=== PATIENT | female | born 2000 | race Two or more races ===

== ENCOUNTER 2025-07-14 15:05 | Outpatient (AMB) | payer BC, MEDICAID, SELFPAY ==
[2025-07-14 15:18] VITALS: BP 132/85; PULSE 91; RESP 18; TEMP 35.9; O2SAT 97; BMI 44.4
--- NOTE | 2025-07-14 15:18 | OBCLNT_ITS ---
Vital Signs 07/14/25 15:18 Height 1.68 m Height Method Stated Weight 124.795 kg Weight Measurement Method Standing Scale BMI 44.4 BP 132/85 H Blood Pressure Source Automatic Cuff Blood Pressure Location Left Upper Arm Position Sitting Respiration 18 Pulse 91 Pulse Source Monitor Temp 96.6 F L Temp Source Oral Pulse Oximetry (%) 97 Oxygen Delivery Method Room Air Allergies/Home Meds Allergies & Medications Allergies No Known Allergies Allergy (Verified 07/14/25 15:19) Medication Reconciliation insulin glargine 100 unit/mL subcutaneous solution (Lantus U-100 Insulin) 39 unit subcut HS #0 vials 10/05/19 [History Confirmed 07/14/25] blood sugar diagnostic (Blood Glucose Test strips) #100 ea 07/14/25 [Rx] blood-glucose meter (Blood Glucose Monitoring kit) #1 ea 07/14/25 [Rx] insulin glargine 100 unit/mL (3 mL) subcutaneous pen (Lantus Solostar U-100 Insulin) 10 unit (0.1 mL) subcut QPM 30 days #3 mL 07/14/25 [Rx] labetalol 200 mg tablet 200 mg PO BID 30 days #60 tabs 07/14/25 [Rx] lancets 21 gauge #100 ea 07/14/25 [Rx] pen needle, diabetic 29 gauge x 1/2 #100 ea 07/14/25 [Rx] Intake Visit Data Collection New Patient or Established: New Patient not seen in past 3 years at [facility] (considered New) Reason for Visit:: INITIAL CARE Seen by Clinical Staff ONLY (RN/MA): No Tuna Purse Seiner Required: No Do You Feel Safe at Home: Yes Authorities Contacted: N/A PCP or OBGYN visit in last 3 months: Yes Hx Now: Yes Are you currently on any form of Control: No Last menstrual period: 12/25/24 Pain Present Currently: Yes Pain Location: Abdomen (LOWER ABDOMEN) Pain Scale Used: Saldana-Linder/Numerical Pain scale:: 5 Smoking Status Smoking Status: Never smoker Questionnaires Covid-19 Vaccine Questionnaire Has patient been vacinated for Covid-19 Have you been vacinated for Covid-19: Yes PHQ-9 PHQ-2 Over the last 2 weeks, how often have you been bothered by any of the following problems? 1. Little interest or pleasure in doing things: not at all 2. Feeling down, depressed, or hopeless: not at all Total score: 0 PHQ-9 3. Trouble falling or staying asleep, or sleeping too much: Not at all 4. Feeling tired or having little energy: Not at all 5. Poor appetite or overeating: Not at all 6. Feeling bad about yourself - or that you are a failure or have let yourself or your family down: Not at all 7. Trouble concentrating on things, such as reading the newspaper or watching television: Not at all 8. Moving or speaking so slowly that other people could have noticed? - Or the opposite - being so fidgety or restless that you have been moving around a lot more than usual: not at all 9. Thoughts that you would be better off or of hurting yourself in some way: Not at all Total score: 0 Source: Developed by Drs. Raymond Yip, Irma Hensley, Aman Farnsworth and colleagues, with an educational brenna from [employer]. Depression screen completed yes Social History Living Situation History Marital Status: Lives With: Family Housing: Apartment Tobacco History Smoking Status: Never smoker Second Hand Smoke Exposure: No Alcohol History Alcohol Intake: Never Domestic Abuse History Do You Feel Safe at Home: Yes History of Present Illness HPI Narrative Patient is a 4 para 0212 at 28 weeks and 5 days gestation, presenting for transfer of care from [facility] [place]. She has a history of two previous C-sections, both full-term, performed by Dr. Del Rosario from [facility]. Her is considered high-risk due to multiple comorbidities including type 2 diabetes mellitus in , chronic hypertension in , and morbid obesity. She reports that her blood glucose meter has been giving false readings, impacting her ability to accurately monitor her diabetes at home. She has a history of nausea during . Her estimated due date is August 20 or 2024, with a planned at 38 weeks. She is transferring her care at this stage of , bringing all her records for continuity of care. Medical History: - Type 2 diabetes mellitus in - Chronic hypertension in - Morbid obesity - History of nausea during Surgical History: - section x2, both full-term Obstetric History: - GTPAL: G4 T2 L2 - Two previous full-term C-sections performed by Dr. Del Rosario from [place] [facility] - Current : 28 weeks and 5 days gestation - Estimated due date: August 20 or 2024 with planned at 38 weeks Medications: - Metformin 1000 mg by mouth twice daily - Lantus 10 units at night - Guanfacine for hypertension Social History: - Lives in [place] - Uses [facility] [employer]: Past Medical History Past Medical History: Yes Hx Hypertension and Yes Hx Diabetes Mellitus Type 2 OB Initial Visit OB Flowsheet OB Flowsheet Initial Weight: Not Recorded Date -?-?-?-?-?-?-?-?-?-?-?-?- EGA Weight BP Alb Glu CTX Pres Fundal ht FHR Mov Dilation Station Ef facement Hx Notes Visit Note 07/14/25 -?-?-?-?-?-?-?-?-?-?-?-?- 28w 5d 124.795 kg 132/85 absent unknown 145 28w5d transferring care from [facility] [place] with history of 2 prior full-term C-sections, now high-risk due to type 2 diabetes, chronic hypertension, and morbid obesity. Reports unreliable glucose meter readings. On metformin, Lantus, and guanfacine. Planned repeat at 38 weeks (DEANNE ~08/20/25). Plan: Continue labs and growth monitoring; initiate NSTs at 32 weeks; switch guanfacine to labetalol; replace glucose meter and monitor sugars for 7 days; follow-up every 2 weeks until 35w, then weekly; next visit 07/29 at 9:30 AM. Menstrual History Menstrual reliability: definite Flow: normal Menstrual regularity: regular Monthly: Yes Age at menarche: 13 On control pills at conception: No Associated symptoms (LMP): Denies amenorrhea, nausea, vomiting, fatigue, breast tenderness, urinary frequency, irritability, bloating or other OB History : 4 Para: 2 Hx Total # of Abortions (Spontaneous & Elective): 1 # of Living Children: 2 Delivery History 1st : Child's name: TULIO date: 05/17/20 sex: female Gestational age at delivery (weeks): 38 Delivery type: Delivery complications: NONE History of depression before or after : No 2nd : Child's name: NEELA date: 05/23/22 sex: female Gestational age at delivery (weeks): 38 Delivery type: Delivery complications: NONE History of depression before or after : No Infection History & Risk Evaluation History of STDs: none Genetic Screening & History Genetic Screening/Teratology Counseling - Includes patient, baby's father, or anyone in either family with: 1. Patient's age 35 years or older as of estimated date of delivery: No 2. Thalassemia (Mongolian, Greenlandic, Mediterranean, or Background); MCV less than 80: No 3. Neural Tube Defect (Meningomyelocele, Spina Bifida, or Anencephaly): No 4. Congenital Heart Defect: No 5. Down Syndrome: No 6. Ifeanyi-Sachs (Ashkenazi Tenriism, Cajun, Belizean Angelina): No 7. Pau Disease (Ashkenazi Tenriism): No 8. Familial Dysautonomia (Ashkenazi Tenriism): No 9. Sickle Cell Disease or Trait (): No 10. Hemophilia or other blood disorders: No 11. Muscular Dystrophy: No 12. Cystic Fibrosis: No 13. Centre's Chorea: No 14. Mental Retardation/Autism: No 15. Other inherited genetic or chromosomal disorder: No 16. Maternal Metabolic Disorder (EG,TYPE 1 Diabetes, PKU): No 17. Patient or baby's father had a child with defects not listed above: No 18. Recurrent loss or a stillbirth: No 19. Medications (including supplements, vitamins, herbs or otc drugs)/illicit/recreational drugs/alcohol since last menstrual period: No 20. Any other: No Infection History 1. Live with someone with TB or exposed to TB: No 2. Rash or viral illness since last menstrual period: No 3. Hepatitis B,C: No Other (see comments) Source: [employer] Review of Systems Constitutional Constitutional: Denies fatigue Gastrointestinal Gastrointestinal: Denies bloating, Denies nausea and Denies vomiting Genitourinary Genitourinary: Denies amenorrhea and Denies urinary frequency Psychiatric Psychiatric: Denies irritability Endocrine Endocrine: Denies fatigue Exam General General Appearance: alert, in no apparent distress and healthy appearing Head Head exam: atraumatic Neck Neck exam: Present normal inspection and trachea midline Chest Chest inspection: Present normal inspection and symmetric chest wall rise External exam: Present normal external exam; Absent tenderness Neuro Neurological exam: Present oriented X3 Psych Psychiatric exam: Present normal affect and normal mood Office Procedures OB Clinic LOC & Office Proc's Nursing/Assessment Patient Status: Initial/New Patient OB Clinic Nursing Assessment: Medication Reconciliation, Update PMH in EMR and Vital Signs OB Clinic Coordination of Care: Complex Care and Chronic Disease 1-5, Consent,records obtained, informed consent, Education Simp Pt/Fam, 1 Ins Authorization, Lab and Imaging orders, Results/Orders obtained and Staff clarify orders Special Needs: Heart tones New Patient Charge New Patient Point Assignment: [id number] New Patient Point Charge: MANAGER PRODUCT MARKETING Level 4 (8300-3700) Assessment & Plan Diagnosis / Problem List (1) Type 2 diabetes mellitus affecting in third trimester, antepartum: Status: Acute (2) Chronic hypertension affecting : Status: Acute Plan , intrauterine, 28 weeks 5 days Assessment: Patient is a at 28 weeks 5 days gestation, with a history of two previous full-term C-sections. She is transferring care from [facility] [place] with all records. Given her medical history and previous C-sections, this is considered high-risk. A repeat is planned at 38 weeks, around August 20 or . Plan: - Schedule follow-up appointments every 2 weeks, then weekly after 35 weeks gestation - Initiate monitoring twice weekly starting at 32 weeks gestation - Plan for at 38 weeks gestation (around August 20 or ) - Next appointment scheduled for July 29 at 9:30 AM Type 2 Diabetes Mellitus in Assessment: Patient has pre-existing type 2 diabetes mellitus, currently managed with metformin 1000 mg BID and Lantus 10 units at night. Home glucose monitoring has been inconsistent or unreliable. Plan: - Continue current diabetes medications - Provide new glucose meter and supplies - Patient to monitor and record blood glucose levels for at least 7 days - Review glucose logs at next appointment to assess need for medication adjustments Chronic Hypertension in Assessment: Patient has chronic hypertension, currently managed with guanfacine. Given the extensive safety data available for labetalol use in , a medication change is warranted. Plan: - Discontinue guanfacine - Initiate labetalol - Prescribe new antihypertensive medication through [facility] Morbid Obesity Assessment: Patient has morbid obesity, which contributes to her high-risk status. Plan: - Continue to monitor weight throughout - Provide appropriate nutritional counseling as needed
== END 2025-07-14 15:32 | disposition home or self-care (01) ==
PROVIDERS: Supervising Provider Obstetrics & Gynecology; Visit Provider Obstetrics & Gynecology
DX: O09.893 Supervision of other high risk pregnancies, third trimester (principal); O24.113 Pre-existing type 2 diabetes mellitus, in pregnancy, third trimester; E11.9 Type 2 diabetes mellitus without complications; O99.213 Obesity complicating pregnancy, third trimester; E66.01 Morbid (severe) obesity due to excess calories; O10.913 Unspecified pre-existing hypertension complicating pregnancy, third trimester; O09.293 Supervision of pregnancy with other poor reproductive or obstetric history, third trimester; O34.219 Maternal care for unspecified type scar from previous cesarean delivery; Z3A.28 28 weeks gestation of pregnancy; Z79.4 Long term (current) use of insulin; Z79.899 Other long term (current) drug therapy
CPT/HCPCS: 99204; G0463

== ENCOUNTER 2025-08-03 09:26 | Outpatient (AMB) | payer BC, MEDICAID, SELFPAY ==
[2025-08-03 09:35] VITALS: BP 111/70; PULSE 92; RESP 16; TEMP 36.8; O2SAT 98; BMI 44.4
--- NOTE | 2025-08-03 09:35 | AMB.OBVISIT ---
Vital Signs 08/03/25 09:35 Height 1.68 m Height Method Stated Weight 125.362 kg Weight Measurement Method Standing Scale BMI 44.4 BP 111/70 Blood Pressure Source Automatic Cuff Blood Pressure Location Left Upper Arm Position Sitting Respiration 16 Pulse 92 Pulse Source Monitor Temp 98.2 F Temp Source Oral Pulse Oximetry (%) 98 Oxygen Delivery Method Room Air Allergies/Home Meds Allergies & Medications Allergies No Known Allergies Allergy (Verified 08/03/25 09:36) Medication Reconciliation insulin glargine 100 unit/mL subcutaneous solution (Lantus U-100 Insulin) 39 unit subcut HS #0 vials 10/05/19 [History Confirmed 08/03/25] blood sugar diagnostic (Blood Glucose Test strips) #100 ea 07/14/25 [Rx Confirmed 08/03/25] blood-glucose meter (Blood Glucose Monitoring kit) #1 ea 07/14/25 [Rx Confirmed 08/03/25] insulin glargine 100 unit/mL (3 mL) subcutaneous pen (Lantus Solostar U-100 Insulin) 10 unit (0.1 mL) subcut QPM 30 days #3 mL 07/14/25 [Rx Confirmed 08/03/25] labetalol 200 mg tablet 200 mg PO BID 30 days #60 tabs 07/14/25 [Rx Confirmed 08/03/25] lancets 21 gauge #100 ea 07/14/25 [Rx Confirmed 08/03/25] pen needle, diabetic 29 gauge x 1/2 #100 ea 07/14/25 [Rx Confirmed 08/03/25] metformin 1,000 mg tablet 1,000 mg PO BID 30 days #60 tabs 08/03/25 [Rx] Intake Visit Data Collection New Patient or Established: Established Patient (seen at [facility] within 3 years) Reason for Visit:: OBC Seen by Clinical Staff ONLY (RN/MA): No Software Engineer Backend Required: No Do You Feel Safe at Home: Yes Authorities Contacted: N/A PCP or OBGYN visit in last 3 months: Yes Date of Last PCP or OBGYN visit: 07/14/25 Hx Now: Yes Are you currently on any form of Control: No Pain Present Currently: No Pain Scale Used: Saldana-Linder/Numerical Pain scale:: 0 Smoking Status Smoking Status: Never smoker Questionnaires Covid-19 Vaccine Questionnaire Has patient been vacinated for Covid-19 Have you been vacinated for Covid-19: Yes PHQ-9 PHQ-2 Over the last 2 weeks, how often have you been bothered by any of the following problems? 1. Little interest or pleasure in doing things: not at all 2. Feeling down, depressed, or hopeless: not at all Total score: 0 PHQ-9 3. Trouble falling or staying asleep, or sleeping too much: Not at all 4. Feeling tired or having little energy: Not at all 5. Poor appetite or overeating: Not at all 6. Feeling bad about yourself - or that you are a failure or have let yourself or your family down: Not at all 7. Trouble concentrating on things, such as reading the newspaper or watching television: Not at all 8. Moving or speaking so slowly that other people could have noticed? - Or the opposite - being so fidgety or restless that you have been moving around a lot more than usual: not at all 9. Thoughts that you would be better off or of hurting yourself in some way: Not at all Total score: 0 If you checked off any problems, how difficult have these problems made it for you to do your work, take care of things at home, or get along with other people?: not difficult at all Source: Developed by Drs. Raymond Yip, Irma Hensley, Aman Farnsworth and colleagues, with an educational brenna from [email or web address]. Depression screen completed yes Social History Living Situation History Marital Status: Lives With: Family Housing: Apartment Tobacco History Smoking Status: Never smoker Second Hand Smoke Exposure: No Alcohol History Alcohol Intake: Never Domestic Abuse History Do You Feel Safe at Home: Yes C++ PROFESSOR: Past Medical History Past Medical History: Yes Hx Hypertension, No Hx Renal Disease, No Hx Diabetes Mellitus Type 1 and Yes Hx Diabetes Mellitus Type 2 Care OB Visit Log OB Flowsheet Initial Weight: Not Recorded Date <del>?</del> EGA Weight BP Alb Glu CTX Pres Fundal ht FHR Mov Dilation Station Effacement Hx Notes Visit Note 07/14/25 <del>?</del> 28w 5d 124.795 kg 132/85 absent unknown 145 28w5d transferring care from [facility] with history of 2 prior full-term C-sections, now high-risk due to type 2 diabetes, chronic hypertension, and morbid obesity. Reports unreliable glucose meter readings. On metformin, Lantus, and guanfacine. Planned repeat at 38 weeks (DEANNE ~08/20/25). Plan: Continue labs and growth monitoring; initiate NSTs at 32 weeks; switch guanfacine to labetalol; replace glucose meter and monitor sugars for 7 days; follow-up every 2 weeks until 35w, then weekly; next visit 07/29 at 9:30 AM. 08/03/25 <del>?</del> 31w 4d 125.362 kg 111/70 absent unknown 32 145 Patient has a history of prior delivery. No contractions, LOF, VB and reports good FM. Denies SHAH, VC, and epigastric pain. - Schedule repeat at 38 weeks - Continue current labetalol regimen for chronic hypertension - Prescribe Metformin 1000mg twice daily, send to [facility] - Start weekly appointments - Await insurance approval for NST testing; if not approved by end of or Friday, patient to be called in for testing DEANNE Calculator Estimated Delivery Date Method Current WG Current Estimate 10/01/25 LMP (Certain) 32w 1d Notes Visit Date: 08/03/25 Last Updated by: Wilver Landon MD - Chronic hypertension - Gestational diabetes mellitus - 4 para 2 at 31 weeks and 4 days gestation - Blood glucose monitoring: - Patient presented glucose logs - Fasting values: 117, 115 - Post-meal values: 124, 128, 115, 94 Office Procedures OB Clinic LOC & Office Proc's Nursing/Assessment Patient Status: Established Patient OB Clinic Nursing Assessment: Medication Reconciliation, Update PMH in EMR and Vital Signs OB Clinic Coordination of Care: Education Complex Pt/Fam, Consent,records obtained, informed consent, Lab and Imaging orders and Staff clarify orders Special Needs: Heart tones Established Patient Charge Established Patient Point Assignment: 110 Established Patient Point Charge: EP Level 3 (80-115) Assessment & Plan Diagnosis / Problem List (1) Chronic hypertension affecting : Status: Acute (2) Type 2 diabetes mellitus affecting in third trimester, antepartum: Status: Acute (3) Supervision of high risk , unspecified, third trimester: Status: Acute Plan Problem List - Chronic hypertension - Gestational diabetes mellitus - 4 para 2 at 31 weeks and 4 days gestation Assessment 4 para 0212 at 31 weeks and 4 days gestation with chronic hypertension and gestational diabetes mellitus (GDM). Patient was previously switched to labetalol for hypertension management. Blood glucose readings are within target range, with fasting values of 117 and 115, and post-prandial values ranging from 94 to 128. Patient reports decreased appetite due to growth. Blood pressure medication compliance confirmed. heart rate noted at 154-155 bpm, which is within normal limits. Patient ran out of metformin for GDM management. Plan - Schedule repeat at 38 weeks - Continue current labetalol regimen for chronic hypertension - Prescribe Metformin 1000mg twice daily, send to [facility] - Start weekly appointments - Await insurance approval for NST testing; if not approved by end of or Friday, patient to be called in for testing 1. Progress Reviewed gestational age, growth, and heart rate. Planned frequent visits (every 2 weeks until 36 weeks, then weekly). 2. Instructed patient to monitor movements and report decreases immediately. 3. Testing Counseled on routine third-trimester labs per guidelines. Discussed potential need for ultrasound or monitoring based on risk factors. 4. Preeclampsia Precaution Educated on preeclampsia signs: severe headache, vision changes, right upper quadrant pain, sudden swelling. Advised urgent reporting of symptoms and discussed blood pressure monitoring if high risk. 5. Labor Precautions Reviewed labor signs: regular contractions, pelvic pressure, back pain, bleeding, or fluid leakage. Instructed to seek immediate care for these symptoms. 6. Lifestyle and Delivery Preparation Reinforced vitamins, nutrition, and safe activity. Discussed plan, pain management, and . Advised on labor preparation (e.g., hospital bag) and expectations. 7. Psychosocial Support Assessed emotional well-being and offered resources for mental health or parenting support.
== END 2025-08-03 10:02 | disposition home or self-care (01) ==
LOC: HODSOBC 09:26
PROVIDERS: Supervising Provider Obstetrics & Gynecology; Visit Provider Obstetrics & Gynecology
DX: O09.893 Supervision of other high risk pregnancies, third trimester (principal); O10.913 Unspecified pre-existing hypertension complicating pregnancy, third trimester; O24.113 Pre-existing type 2 diabetes mellitus, in pregnancy, third trimester; O09.293 Supervision of pregnancy with other poor reproductive or obstetric history, third trimester; Z3A.31 31 weeks gestation of pregnancy; O99.213 Obesity complicating pregnancy, third trimester; E66.01 Morbid (severe) obesity due to excess calories; O34.219 Maternal care for unspecified type scar from previous cesarean delivery; Z79.899 Other long term (current) drug therapy; Z79.4 Long term (current) use of insulin; Z79.84 Long term (current) use of oral hypoglycemic drugs
CPT/HCPCS: 99213; G0463

== ENCOUNTER 2025-08-10 13:43 | Outpatient (AMB) | payer BC, MEDICAID, SELFPAY ==
[2025-08-10 14:07] VITALS: BP 130/84; PULSE 90; RESP 18; TEMP 35.6; O2SAT 98; BMI 44.7
--- NOTE | 2025-08-10 14:07 | AMB.OBVISIT ---
Vital Signs 08/10/25 14:07 Height 1.68 m Height Method Stated Weight 126.325 kg Weight Measurement Method Standing Scale BMI 44.7 BP 130/84 Blood Pressure Source Automatic Cuff Blood Pressure Location Left Upper Arm Position Sitting Respiration 18 Pulse 90 Pulse Source Monitor Temp 96.1 F L Temp Source Oral Pulse Oximetry (%) 98 Oxygen Delivery Method Room Air Allergies/Home Meds Allergies & Medications Allergies No Known Allergies Allergy (Verified 08/10/25 14:08) Medication Reconciliation insulin glargine 100 unit/mL subcutaneous solution (Lantus U-100 Insulin) 39 unit subcut HS #0 vials 10/05/19 [History Confirmed 08/10/25] blood sugar diagnostic (Blood Glucose Test strips) #100 ea 07/14/25 [Rx Confirmed 08/10/25] blood-glucose meter (Blood Glucose Monitoring kit) #1 ea 07/14/25 [Rx Confirmed 08/10/25] insulin glargine 100 unit/mL (3 mL) subcutaneous pen (Lantus Solostar U-100 Insulin) 10 unit (0.1 mL) subcut QPM 30 days #3 mL 07/14/25 [Rx Confirmed 08/10/25] labetalol 200 mg tablet 200 mg PO BID 30 days #60 tabs 07/14/25 [Rx Confirmed 08/10/25] lancets 21 gauge #100 ea 07/14/25 [Rx Confirmed 08/10/25] pen needle, diabetic 29 gauge x 1/2 #100 ea 07/14/25 [Rx Confirmed 08/10/25] metformin 1,000 mg tablet 1,000 mg PO BID 30 days #60 tabs 08/03/25 [Rx Confirmed 08/10/25] Intake Visit Data Collection New Patient or Established: Established Patient (seen at [facility] within 3 years) Reason for Visit:: CARE Seen by Clinical Staff ONLY (RN/MA): No 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 1. Little interest or pleasure in doing things: not at all 2. Feeling down, depressed, or hopeless: not at all Total score: 0 PHQ-9 3. Trouble falling or staying asleep, or sleeping too much: Not at all 4. Feeling tired or having little energy: Not at all 5. Poor appetite or overeating: Not at all 6. Feeling bad about yourself - or that you are a failure or have let yourself or your family down: Not at all 7. Trouble concentrating on things, such as reading the newspaper or watching television: Not at all 8. Moving or speaking so slowly that other people could have noticed? - Or the opposite - being so fidgety or restless that you have been moving around a lot more than usual: not at all 9. Thoughts that you would be better off or of hurting yourself in some way: Not at all Total score: 0 Source: Developed by Drs. Raymond Yip, Irma Hensley, Aman Farnsworth and colleagues, with an educational brenna from [employer]. 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 Reports unreliable glucose meter readings. On metformin, Lantus, and guanfacine. Planned repeat at 38 weeks (DEANNE ~08/20/25). Plan: Continue labs and growth monitoring; initiate NSTs at 32 weeks; switch guanfacine to labetalol; replace glucose meter and monitor sugars for 7 days; follow-up every 2 weeks until 35w, then weekly; next visit 07/29 at 9:30 AM. 08/03/25 <del>?</del> 35w 4d 125.362 kg 111/70 absent unknown 32 145 Patient has a history of prior delivery. No contractions, LOF, VB and reports good FM. Denies SHAH, VC, and epigastric pain. - Schedule repeat at 38 weeks - Continue current labetalol regimen for chronic hypertension - Prescribe Metformin 1000mg twice daily, send to [facility] - Start weekly appointments - Await insurance approval for NST testing; if not approved by end of or Friday, patient to be called in for testing 08/10/25 <del>?</del> 36w 4d 126.325 kg 130/84 absent unknown 36 145 - Patient reports: - Adherence to prescribed medications - Taking metformin 1000 mg twice daily for diabetes management - Taking blood pressure medication as prescribed - Blood sugar control - Highest readings between 160-170 mg/dL - No concerns or new symptoms mentioned - Planned interventions: - scheduled for 38 weeks due to chronic hypertension - GBS screening planned for next visit - Recent healthcare interactions: - Ultrasound performed at [facility] on the , report pending finalization - Planned section at 38 weeks for chronic hypertension, scheduled for September 20 at 7:30 AM (pending confirmation of due date from [facility] ultrasound report) - Continue metformin 1000 mg BID for type 2 diabetes mellitus - Continue current blood pressure medication - Stop medications one week before delivery - GBS testing to be performed in 2 weeks - Follow-up appointment in 2 weeks - Awaiting finalized ultrasound report from [facility] to confirm due date and section scheduling DEANNE Calculator Estimated Delivery Date Method Current WG Current Estimate 09/03/25 Manual 36w 5d By [facility] 05/27 Other Estimates 10/01/25 LMP (Uncertain) 32w 5d 09/03/25 Ultrasound #1 36w 5d Notes Visit Date: 08/03/25 Last Updated by: Wilver Landon MD - Chronic hypertension - Gestational diabetes mellitus - 4 para 2 at 31 weeks and 4 days gestation - Blood glucose monitoring: - Patient presented glucose logs - Fasting values: 117, 115 - Post-meal values: 124, 128, 115, 94 Office Procedures OBC Clinic LOC & Office Proc's Nursing/Assessment Patient Status: Established Patient OB Clinic Nursing Assessment: Medication Reconciliation, Update PMH in EMR and Vital Signs OB Clinic Coordination of Care: Complex Care and Chronic Disease 1-5, Consent,records obtained, informed consent, Education Simp Pt/Fam, 1 Ins Authorization, Lab and Imaging orders, Results/Orders obtained and Staff clarify orders Special Needs: Heart tones Established Patient Charge Established Patient Point Assignment: 150 Established Patient Point Charge: EP Level 4 (120-155) Assessment & Plan Diagnosis / Problem List (1) Chronic hypertension affecting : Status: Acute (2) Type 2 diabetes mellitus affecting in third trimester, antepartum: Status: Acute (3) Supervision of high risk , unspecified, third trimester: Status: Acute Plan Problem List - Type 2 Diabetes Mellitus - Chronic hypertension - ( 4, Para 2) Assessment 32-week 4-day 4 para 2 with chronic hypertension and type 2 diabetes mellitus managed on metformin 1000 mg BID. Blood pressure appears well-controlled on current antihypertensive medication. Glucose levels reported as acceptable with highest readings not exceeding 160-170 mg/dL. heart rate normal at 148-150 bpm with polyhydramnios noted on examination. Patient scheduled for third section at 38 weeks gestation due to chronic hypertension. Discrepancy exists regarding due date with conflicting information between facilities requiring clarification of ultrasound dating. Plan - Planned section at 38 weeks+ for chronic hypertension, scheduled for Aug 23 at 7:30 AM (pending confirmation of due date from [facility] ultrasound report) - Continue metformin 1000 mg BID for type 2 diabetes mellitus - Continue current blood pressure medication - Stop medications one week before delivery - GBS testing to be performed in 2 weeks - Follow-up appointment in 2 weeks - Awaiting finalized ultrasound report from [facility] to confirm due date and section scheduling 1. Progress Reviewed gestational age, growth, and heart rate. Planned frequent visits (every 2 weeks until 36 weeks, then weekly). 2. Instructed patient to monitor movements and report decreases immediately. 3. Testing Counseled on routine third-trimester labs per guidelines. Discussed potential need for ultrasound or monitoring based on risk factors. 4. Preeclampsia Precaution Educated on preeclampsia signs: severe headache, vision changes, right upper quadrant pain, sudden swelling. Advised urgent reporting of symptoms and discussed blood pressure monitoring if high risk. 5. Labor Precautions Reviewed labor signs: regular contractions, pelvic pressure, back pain, bleeding, or fluid leakage. Instructed to seek immediate care for these symptoms. 6. Lifestyle and Delivery Preparation Reinforced vitamins, nutrition, and safe activity. Discussed plan, pain management, and . Advised on labor preparation (e.g., hospital bag) and expectations. 7. Psychosocial Support Assessed emotional well-being and offered resources for mental health or parenting support.
== END 2025-08-10 14:44 | disposition home or self-care (01) ==
LOC: HODSOBC 13:43
PROVIDERS: Supervising Provider Obstetrics & Gynecology; Visit Provider Obstetrics & Gynecology
DX: O09.893 Supervision of other high risk pregnancies, third trimester (principal); O10.913 Unspecified pre-existing hypertension complicating pregnancy, third trimester; O24.113 Pre-existing type 2 diabetes mellitus, in pregnancy, third trimester; Z3A.36 36 weeks gestation of pregnancy; O40.3XX0 Polyhydramnios, third trimester, not applicable or unspecified; O09.293 Supervision of pregnancy with other poor reproductive or obstetric history, third trimester; O34.219 Maternal care for unspecified type scar from previous cesarean delivery; Z79.84 Long term (current) use of oral hypoglycemic drugs; Z79.4 Long term (current) use of insulin; Z79.899 Other long term (current) drug therapy
CPT/HCPCS: 99214; G0463

== ENCOUNTER 2025-08-11 09:16 | Outpatient (CLI) | payer BC, MEDICAID, SELFPAY ==
[2025-08-11] VITALS (7 sets, daily range): BP systolic 130–154; BP diastolic 79–88; PULSE 88–92; RESP 16–99; TEMP 36.6; BMI 43.9
--- NOTE | 2025-08-11 09:37 | XR_ITS ---
Examination: Biophysical profile, ultrasound Date and time of exam: August 11, 2025 0959 hours INDICATIONS: Diagnosis gestational diabetes, diagnosis -induced hypertension today Technique: Multiple transabdominal sonographic images of the pelvis abdomen obtained. Attention is directed to the breathing movement, gross body movement, amniotic fluid volume and tone. Findings: Amniotic fluid index 18.7 cm Total biophysical profile is 8 of 8. breathing movement is 2. Gross body movement is 2. tone is 2. Qualitative amniotic fluid volume is 2 Impression: Biophysical profile is 8 of 8.
[2025-08-11 10:35] LABS: Basophils # (Auto) 0.0 Thou/mm3 (0.0-0.2); Basophils % (Auto) 0 % (0-2.5); Eosinophils # (Auto) 0.1 Thou/mm3 (0.0-0.5); Eosinophils % (Auto) 1 % (0-10); Hematocrit 34.6 % (36.0-46.0); Hemoglobin 11.5 g/dL (12.0-16.0); Immature Granulocytes Auto 0.03 Thou/mm3 (0.00-0.00); Lymphocytes # (Auto) 1.3 Thou/mm3 (1.0-4.8); Lymphocytes % (Auto) 13 % (10-50); Mean Corpuscular HGB Conc 33.2 g/dl (31.0-37.0); Mean Corpuscular Hemoglobin 27.0 pg (25.0-35.0); Mean Corpuscular Volume 81 fL (80-100); Monocytes # (Auto) 0.4 Thou/mm3 (0.0-0.8); Monocytes % (Auto) 4 % (0-12); Neutrophils # (Auto) 7.9 Thou/mm3 (1.8-7.7); Neutrophils % (Auto) 82 % (37-80); Nucleated Red Blood Cell # 0.00 Thou/mm3 (0.00-0.00); Nucleated Red Blood Cell % 0 /100 WBC (0); Platelet Count 235 Thou/mm3 (140-440); RDW Standard Deviation 41.3 fL (36.4-46.3); Red Blood Count 4.26 Miln/mm3 (4.00-5.20); White Blood Count 9.7 Thou/mm3 (3.6-11.0)
[2025-08-11 10:53] LABS: Alanine Aminotransferase 12 U/L (10-49); Albumin, Serum 3.7 gm/dL (3.5-5.0); Albumin/Globulin Ratio 1.5 (1.2-2.2); Alkaline Phosphatase 89 U/L (46-116); Anion Gap 12 (7-16); Aspartate Amino Transferase 17 U/L (0-34); BUN/Creatinine Ratio 14 Ratio (12-20); Bilirubin,Total 0.3 mg/dL (0.3-1.2); Blood Urea Nitrogen 10 mg/dL (9-23); Calcium 9.2 mg/dL (8.3-10.6); Calcium (Corrected) 9.4 mg/dL (8.5-10.1); Carbon Dioxide 18.8 mMol/L (20.0-31.0); Chloride 107 mMol/L (98-107); Creatinine (Component) 0.7 mg/dL (0.6-1.3); Estimated Creatinine Clearance 173.5 mL/min (>60); Globulin 2.4 gm/dL (2.3-3.5); Glucose 169 mg/dL (74-106); LDH (Lactate Dehydrogenase) 109 U/L (120-246); Osmolality,Calculated 278 (275-295); Potassium 4.1 mMol/L (3.4-5.1); Sodium 138 mMol/L (136-145); Total Protein 6.1 gm/dL (5.7-8.2); Uric Acid 7.1 mg/dL (3.1-7.8); eGFR > 60 See Note
[2025-08-11 10:58] LABS: INR 1.0 (0.9-1.3); Partial Thromboplastin Time 27.2 Seconds (22.0-36.0); Prothrombin Time 10.5 Seconds (9.0-12.2)
[2025-08-11 11:00] LABS: Collection Type, Urine Clean Catch
[2025-08-11 11:07] LABS: Bilirubin,Urine Negative (Negative); Blood,Urine Negative (Negative); Clarity,Urine Clear (Clear/Hazy); Color,Urine Yellow (Lt Yel-Yel); Glucose, Urine Negative (Negative); Ketones,Urine Negative (Negative); Leukocyte Esterase,Urine Negative (Negative); Nitrite,Urine Negative (Negative); PH,Urine 6.5 (5.0-7.0); Protein,Urine Trace (Neg - Trace); RBC,Urine 2 /hpf (0-3); Specific Gravity,Urine 1.023 (1.001-1.035); Squamous Epithelial Cell,Urine 4 /hpf (0-5); Urobilinogen,Urine 2.0 mg/dL (0.0-1.0); WBC,Urine 3 /hpf (0-5)
[2025-08-11 11:16] LABS: Creatinine,Random Urine 125 mg/dL (30-125); Protein Total, Random Urine 37 mg/dL (1-14)
[2025-08-11 11:41] LABS: Fibrinogen 628 mg/dL (175-375)
== END 2025-08-11 11:25 | disposition home or self-care (01) ==
LOC: S4S1 09:17 → S4SX 09:17
PROVIDERS: Referring Provider Obstetrics & Gynecology; Visit Provider Obstetrics & Gynecology
DX: Z34.83 Encounter for supervision of other normal pregnancy, third trimester (principal); Z36.9 Encounter for antenatal screening, unspecified; Z3A.36 36 weeks gestation of pregnancy
CPT/HCPCS: 36415; 59025; 76819; 80053; 81001; 82570; 83615; 84156; 84550; 85025; 85384; 85610; 85730

== ENCOUNTER 2025-08-17 09:29 | Outpatient (CLI) | payer BC, SELFPAY ==
[2025-08-17] VITALS (10 sets, daily range): BP systolic 123; BP diastolic 77; PULSE 77–97; RESP 18–99; TEMP 36.7; O2SAT 98–100; BMI 45.8
--- NOTE | 2025-08-17 09:35 | XR_ITS ---
Examination: Biophysical profile, ultrasound Date and time of exam: August 17 2025, 1128 hours INDICATIONS: Diagnosis gestational diabetes, diagnosis -induced hypertension Technique: Multiple transabdominal sonographic images of the pelvis abdomen obtained. Attention is directed to the breathing movement, gross body movement, amniotic fluid volume and tone. Findings: Amniotic fluid index 14.9 cm Total biophysical profile is 8 of 8. breathing movement is 2. Gross body movement is 2. tone is 2. Qualitative amniotic fluid volume is 2 Impression: Biophysical profile is 8 of 8.
[2025-08-17] MEDS: RINGERS LACTATED 1000 ML 1,000 ML 999 ML IV (10:54)
[2025-08-17 11:17] LABS: Basophils # (Auto) 0.0 Thou/mm3 (0.0-0.2); Basophils % (Auto) 0 % (0-2.5); Eosinophils # (Auto) 0.1 Thou/mm3 (0.0-0.5); Eosinophils % (Auto) 1 % (0-10); Hematocrit 34.9 % (36.0-46.0); Hemoglobin 11.6 g/dL (12.0-16.0); Immature Granulocytes Auto 0.04 Thou/mm3 (0.00-0.00); Lymphocytes # (Auto) 1.5 Thou/mm3 (1.0-4.8); Lymphocytes % (Auto) 14 % (10-50); Mean Corpuscular HGB Conc 33.2 g/dl (31.0-37.0); Mean Corpuscular Hemoglobin 26.6 pg (25.0-35.0); Mean Corpuscular Volume 80 fL (80-100); Monocytes # (Auto) 0.5 Thou/mm3 (0.0-0.8); Monocytes % (Auto) 5 % (0-12); Neutrophils # (Auto) 8.5 Thou/mm3 (1.8-7.7); Neutrophils % (Auto) 80 % (37-80); Nucleated Red Blood Cell # 0.00 Thou/mm3 (0.00-0.00); Nucleated Red Blood Cell % 0 /100 WBC (0); Platelet Count 224 Thou/mm3 (140-440); RDW Standard Deviation 41.3 fL (36.4-46.3); Red Blood Count 4.36 Miln/mm3 (4.00-5.20); White Blood Count 10.6 Thou/mm3 (3.6-11.0)
[2025-08-17 11:28] LABS: Glucose Estimated Average 126 mg/dL (80-131); Hemoglobin A1C 6.0 % Hgb (4.8-6.0)
[2025-08-17 11:35] LABS: INR 0.9 (0.9-1.3); Partial Thromboplastin Time 26.9 Seconds (22.0-36.0); Prothrombin Time 10.0 Seconds (9.0-12.2)
[2025-08-17 11:37] LABS: Alanine Aminotransferase 14 U/L (10-49); Albumin, Serum 3.9 gm/dL (3.5-5.0); Albumin/Globulin Ratio 1.6 (1.2-2.2); Alkaline Phosphatase 97 U/L (46-116); Anion Gap 11 (7-16); Aspartate Amino Transferase 20 U/L (0-34); BUN/Creatinine Ratio 14 Ratio (12-20); Bilirubin,Total 0.4 mg/dL (0.3-1.2); Blood Urea Nitrogen 10 mg/dL (9-23); Calcium 9.7 mg/dL (8.3-10.6); Calcium (Corrected) 9.8 mg/dL (8.5-10.1); Carbon Dioxide 18.4 mMol/L (20.0-31.0); Chloride 110 mMol/L (98-107); Creatinine (Component) 0.7 mg/dL (0.6-1.3); Estimated Creatinine Clearance 171.9 mL/min (>60); Globulin 2.5 gm/dL (2.3-3.5); Glucose 107 mg/dL (74-106); Osmolality,Calculated 276 (275-295); Potassium 3.8 mMol/L (3.4-5.1); Sodium 139 mMol/L (136-145); Total Protein 6.4 gm/dL (5.7-8.2); Uric Acid 7.2 mg/dL (3.1-7.8); eGFR > 60 See Note
[2025-08-17 11:38] LABS: Fibrinogen 668 mg/dL (175-375)
[2025-08-17 11:54] LABS: Syphilis Nonreactive (Nonreactive)
== END 2025-08-17 12:00 | disposition home or self-care (01) ==
LOC: S4S1 09:32 → S4SX 09:32
PROVIDERS: Referring Provider Obstetrics & Gynecology; Visit Provider Obstetrics & Gynecology
DX: Z34.83 Encounter for supervision of other normal pregnancy, third trimester (principal); Z36.9 Encounter for antenatal screening, unspecified; Z3A.37 37 weeks gestation of pregnancy
CPT/HCPCS: 36415; 59025; 76819; 80053; 83036; 84550; 85025; 85384; 85610; 85730; 86780; 86850; 86900; 86901; J7120

== ENCOUNTER 2025-08-22 17:17 | Inpatient (IN) | payer BC, MEDICAID, SELFPAY ==
[2025-08-22] VITALS (49 sets, daily range): BP systolic 127–203; BP diastolic 57–123; PULSE 75–107; RESP 14–98; TEMP 36.6–37.1; O2SAT 96–99; BMI 44.6
[2025-08-22 14:02] LABS: Creatinine,Random Urine 70 mg/dL (30-125); Protein Total, Random Urine 26 mg/dL (1-14)
[2025-08-22 14:20] LABS: Collection Type, Urine Clean Catch
[2025-08-22] MEDS: RINGERS LACTATED 1000 ML 1,000 ML 999 ML IV (14:40)
[2025-08-22 14:46] LABS: Bacteria,Urine 1+; Bilirubin,Urine Negative (Negative); Blood,Urine Negative (Negative); Color,Urine Yellow (Lt Yel-Yel); Glucose, Urine Negative (Negative); Ketones,Urine Negative (Negative); Leukocyte Esterase,Urine Positive (Negative); Nitrite,Urine Negative (Negative); PH,Urine 7.0 (5.0-7.0); Protein,Urine Negative (Neg - Trace); RBC,Urine 1 /hpf (0-3); Specific Gravity,Urine 1.013 (1.001-1.035); Squamous Epithelial Cell,Urine 11 /hpf (0-5); Urobilinogen,Urine Negative mg/dL (0.0-1.0); WBC,Urine 3 /hpf (0-5)
[2025-08-22 15:09] LABS: Clarity,Urine Hazy (Clear/Hazy)
[2025-08-22 15:12] LABS: Basophils # (Auto) 0.0 Thou/mm3 (0.0-0.2); Basophils % (Auto) 0 % (0-2.5); Eosinophils # (Auto) 0.0 Thou/mm3 (0.0-0.5); Eosinophils % (Auto) 0 % (0-10); Hematocrit 36.2 % (36.0-46.0); Hemoglobin 12.0 g/dL (12.0-16.0); Immature Granulocytes Auto 0.04 Thou/mm3 (0.00-0.00); Lymphocytes # (Auto) 1.6 Thou/mm3 (1.0-4.8); Lymphocytes % (Auto) 16 % (10-50); Mean Corpuscular HGB Conc 33.1 g/dl (31.0-37.0); Mean Corpuscular Hemoglobin 26.8 pg (25.0-35.0); Mean Corpuscular Volume 81 fL (80-100); Monocytes # (Auto) 0.5 Thou/mm3 (0.0-0.8); Monocytes % (Auto) 5 % (0-12); Neutrophils # (Auto) 8.1 Thou/mm3 (1.8-7.7); Neutrophils % (Auto) 78 % (37-80); Nucleated Red Blood Cell # 0.00 Thou/mm3 (0.00-0.00); Nucleated Red Blood Cell % 0 /100 WBC (0); Platelet Count 269 Thou/mm3 (140-440); RDW Standard Deviation 41.6 fL (36.4-46.3); Red Blood Count 4.47 Miln/mm3 (4.00-5.20); White Blood Count 10.3 Thou/mm3 (3.6-11.0)
[2025-08-22 15:29] LABS: Alanine Aminotransferase 14 U/L (10-49); Albumin, Serum 4.0 gm/dL (3.5-5.0); Albumin/Globulin Ratio 1.5 (1.2-2.2); Alkaline Phosphatase 101 U/L (46-116); Anion Gap 12 (7-16); Aspartate Amino Transferase 21 U/L (0-34); BUN/Creatinine Ratio 16 Ratio (12-20); Bilirubin,Total 0.3 mg/dL (0.3-1.2); Blood Urea Nitrogen 11 mg/dL (9-23); Calcium 9.2 mg/dL (8.3-10.6); Calcium (Corrected) 9.2 mg/dL (8.5-10.1); Carbon Dioxide 16.7 mMol/L (20.0-31.0); Chloride 110 mMol/L (98-107); Creatinine (Component) 0.7 mg/dL (0.6-1.3); Estimated Creatinine Clearance 175.1 mL/min (>60); Globulin 2.7 gm/dL (2.3-3.5); Glucose 81 mg/dL (74-106); LDH (Lactate Dehydrogenase) 133 U/L (120-246); Osmolality,Calculated 275 (275-295); Potassium 4.3 mMol/L (3.4-5.1); Sodium 139 mMol/L (136-145); Total Protein 6.7 gm/dL (5.7-8.2); Uric Acid 7.0 mg/dL (3.1-7.8); eGFR > 60 See Note
[2025-08-22 15:33] LABS: INR 0.9 (0.9-1.3); Partial Thromboplastin Time 27.4 Seconds (22.0-36.0); Prothrombin Time 10.1 Seconds (9.0-12.2)
[2025-08-22 15:47] LABS: Syphilis Nonreactive (Nonreactive)
[2025-08-22 15:48] LABS: Fibrinogen 739 mg/dL (175-375)
[2025-08-22] MEDS: ceFAZolin/D5W 2 GM IV 2 GM/100 ML BAG IV (16:04)
[2025-08-22] MEDS: FAMOTIDINE INJ 10 MG/ML VIAL 2 ML 20 MG IV (16:04)
--- NOTE | 2025-08-22 18:21 | ESHP_ITS ---
Documentation for date of: 08/22/25 OB Labor/Induct. HPI History of Present Illness Chief complaint: Elevated blood pressures : 4 Para: 2 Term pregnancies: 2 pregnancies: 0 Living children: 2 History of Abortions: Spontaneous and Elective: 1 History of Vaginal deliveries: 0 History of sections: Yes (X2) History of : No Date of last menstrual period: 12/25/24 DEANNE: 09/03/25 Gestational Age (weeks): 38 Gestational Age (days): 2 Gestational age based on last menstrual period: 34 History of present illness: Patient is a 24-year-old -0-1-2 history of x 2 in the past who was scheduled for repeat 08/23/[address] Landon. The patient presented today for a scheduled nonstress test for obesity with a BMI of 45, non-insulin requiring gestational diabetes on metformin, and chronic hypertension on labetalol. The patient's blood pressures in triage were at first normal but began to climb as the day went on consistently in the 150s to 160s over 90s. As patient was over 38 weeks with prior x 2 and elevated BPs, she was consented for a repeat low-transverse section. On presentation, the patient denied contractions, loss of fluid, or vaginal bleeding. She denied headaches,right upper quadrant pain, or changes in vision. History of Present Dating criteria: LMP confirmed by 2nd trimester US Adequate Care: Yes Ultrasounds: normal mid trimester US Obstetrical complications: gestational diabetes and gestational hypertension Medical complications: other (Obesity with a BMI of 45) Labs Maternal Blood Type: O Pos Labs: Positive: Rubella Titre, Negative: RPR, Hepatitis B, HIV, Chlamydia and Gonorrhea and Unknown: Herpes Type 1, Herpes Type 2, Group Beta Strep and Covid-19 Past Medical History Surgical History SURGICAL: Positive Section (X2) Past Medical History Comments PMH COMMENT: Patient has a history of x 2 in the past. Per patient there were no complications with her C-sections including no infections and no heavy bleeding. She has a BMI of 45. CHTN. She denies being on meds for DM prior to . Meds Home Medications and Allergies Allergies Allergy/AdvReac Type Severity Reaction Status Date / Time No Known Allergies Allergy Verified 08/22/25 10:16 OB Exam Physical Exam Vital signs: Temp Pulse Resp BP 98.8 F 91 16 145/86 H 08/22/25 10:08 08/22/25 15:52 08/22/25 10:08 08/22/25 15:52 Routine Abdominal Exam Abdominal: Present soft and surgical scars (Pfannenstiel skin incision) Comments: Abdomen morbidly obese Detailed Labor and Delivery Exam Membranes: intact monitor accelerations: 15x15 monitor decelerations: None intermediate teacher variability: Moderate (11-25) Contraction frequency (min): Irregular Tachysystole: No Contraction intensity: Mild Routine Extremities Exam Comments: +2 edema of feet bilaterally OB Results Labs 08/22/25 14:30 08/22/25 14:30 Labs: Short CBC 08/22/25 Range/Units 14:30 WBC 10.3 (3.6-11.0) Thou/mm3 Hgb 12.0 (12.0-16.0) g/dL Hct 36.2 (36.0-46.0) % Plt Count 269 D (140-440) Thou/mm3 BMP 08/22/25 14:30 Sodium 139 Potassium 4.3 Chloride 110 H Carbon Dioxide 16.7 L BUN 11 Creatinine 0.7 Glucose 81 Calcium 9.2 Liver Function 08/22/25 Range/Units 14:30 Total Bilirubin 0.3 (0.3-1.2) mg/dL AST 21 (0-34) U/L ALT 14 (10-49) U/L Alkaline Phosphatase 101 (46-116) U/L Albumin 4.0 (3.5-5.0) gm/dL Urine 08/22/25 Range/Units 12:20 Urine Color Yellow (Lt Yel-Yel) Urine Clarity Hazy (Clear/Hazy) Urine pH 7.0 (5.0-7.0) Ur Specific Riddle 1.013 (1.001-1.035) Urine Protein Negative (Neg - Trace) Urine Glucose (UA) Negative (Negative) OB Assessment & Plan Assessment and Plan (1) Chronic hypertension affecting : Status: Acute Assessment and plan: On labetalol 200 twice daily (2) Type 2 diabetes mellitus affecting in third trimester, antepartum: Status: Acute Assessment and plan: On 1000 mg metformin daily (3) Supervision of high risk , unspecified, third trimester: Status: Acute (4) Previous delivery affecting : Status: Acute Assessment and plan: For repeat low-transverse section due to -induced hypertension. Patient was consented for the procedure the risks of the procedure were discussed including the risk of bleeding infection blood transfusion damage to bowel bladder blood vessels other organs prolonged hospital stay further surgery should any above occur.
[2025-08-22] MEDS: LABETALOL INJ 5 MG/ML VIAL 20 ML 40 MG IVP (18:29)
--- NOTE | 2025-08-22 18:39 | OBDSUM_ITS ---
Data (Yousif) Data Hx Section: Yes (X2) Maternal Blood Type: O Pos Rubella Titre: Positive RPR: Non-reactive Labs: Negative: RPR, Hepatitis B, HIV, Chlamydia, Gonorrhea and Group Beta Strep : 4 Term: 2 : 0 Livin Abortions: Spontaneous & Theraputic: 1 Delivery Data (Yousif) Labor Data Induction/Augmentation Agent: None ROM date: 08/22/25 ROM time: 16:57 Amniotic membrane rupture type: Artificial Amniotic fluid description: Clear Delivery Data EDC: 09/03/25 EDC calculated by:: LMP/early US confirmation Date of arrival to unit: 08/22/25 Onset of labor date: 08/22/25 Onset of labor time: 16:57 Complete dilation date: 08/22/25 Complete dilation time: 16:57 [place] delivery date: 08/22/25 [place] delivery time: 16:57 Gestational age (weeks): 38 Gestational age (days): 2 Placenta delivery date: 08/22/25 Placenta delivery time: 16:58 Stage 1 total time: Labor - Stage 1 Duration 0 minutes Delivered by: Sudha Augustin (OB Clinic) Delivery nurse: [email or web address] Gustavo nurse: [email or web address] Fuels Engineer at delivery: No Support person(s) at delivery: foB Other staff at delivery: JUAN Soto, CHANGE MANAGEMENTHEBER Garrett CRNA Delivery Method Delivery method: Low Transverse Presentation: Vertex position: OA Anesthesia Type Anesthesia Type: Spinal Delivery Room Medications Delivery room medications: Pitocin 20 u IV Placenta Placenta delivery description: Manual Removal Cord blood sent to lab: Yes cord blood collection: Cord Blood Type Episiotomy Episiotomy description: None EBL Estimated blood loss (ml): 500 Umbilical Cord cord description: 3 Vessels Additional Procedures See op report for further details Complications Complications: None Data (Yousif) Data order: 1 's gender: Male Identification band number: [id number] weight (gms): 3730 g Weight (pounds): 8 lbs and 3.6 ozs length: 50.8 cm 1 minute: 9 5 minutes: 9
--- NOTE | 2025-08-22 18:44 | ESOP_ITS ---
Operative Note - FORECLOSURE PARALEGAL Procedure Date of procedure: 08/22/25 Procedure Performed: Repeat low-transverse section Indication: The patient is a 24-year-old -0-1-2 with all care uncomplicated Dr. Landon with a history of x 2, chronic hypertension on labetalol 200 twice daily, and non-insulin requiring gestational diabetes on metformin daily who presented to triage for nonstress test BPP and was found to have elevated blood pressures in the 150s to 160s over 90s to 100. These persisted for several blood pressure checks. Her preeclamptic labs were normal with the exception of a new UPCR of 0.37 corresponding to a 24-hour urine of 450 mg. As patient was over 38 weeks with chronic hypertension and elevated blood pressures, some in the severe range, the patient was consented for repeat low-transverse section Pre-Op diagnosis: 1. IUP 38 2/7 weeks 2. Previous x 2 3. Chronic hypertension with superimposed preeclampsia 4. Gestational diabetes on metformin 5. Maternal BMI of 45 Post-Op diagnosis: Same Anesthesia type: Spinal Procedure description: Obtaining informed consent, the patient was brought back to the operating room and spinal anesthesia administered. She was then prepped and draped in the dorsal supine position with a leftward tilt in a normal sterile fashion. A Pardo catheter was inserted into the patient's bladder. The patient was given 2 g of Ancef by anesthesia. A Pfannenstiel skin incision was made with a scalpel and carried down to the underlying fascia. The fascia was incised in the midline, and the fascial incision extended laterally using Morton scissors. The superior aspect of the fascia was grasped with Shaq clamps, and the underlying rectus muscles dissected off using blunt and sharp dissection. This was repeated in the inferior aspect the incision. The rectus muscle were in the midline and the peritoneum was picked up and entered sharply with Metzenbaums. This was extended superiorly and inferiorly with good visualization of the bladder. The bladder blade was inserted and the uterus was incised in a low transverse fashion using a scalpel above the bladder reflection. The uterine incision was extended laterally with blunt dissection with the surgeon's fingers. The bag fermin was ruptured and copious clear fluid noted. The bladder blade was removed and the infant was delivered atraumatically in a vertex presentation. As the baby was vigorous at , delayed cord clamping was performed for approximately 1 minute. The cord was then clamped and cut, and the was handed off to the waiting pediatric staff. Cord blood was collected. Cord gases were saved. The placenta was then manually removed, and the uterus was exteriorized and cleared of all clots and debris. The uterine incision was repaired using 0 Monocryl in a running locked fashion. Excellent hemostasis was noted. The uterus was returned to the patient's abdominal cavity and copious irrigation carried out with warm normal saline. The uterine incision was reexamined several times and noted to be hemostatic. After ensuring the rectus muscles were hemostatic, these were reapproximated in the midline using a running suture of 0 Monocryl. The fascia was closed with 0 Vicryl in a running fashion. The subcutaneous tissues were irrigated, and found to be hemostatic. These were reapproximated using a running suture of 2-0 plain. The skin was closed with a subcuticular suture of 4-0 Monocryl. The patient tolerated the procedure well, sponge, lap, needle, and instrument counts were correct x 2. The patient went to the recovery area awake and in stable condition. Complications were none. Fluids: crystalloid Fluid amount (mL): 500 Urine output (mL): 500 Specimen: none Implants: None Estimated blood loss (ml): 500 Findings: Liveborn male in the DEIDRE presentation with no nuchal cord or meconium Apgars were 9 and 9 weight was 8 pounds 4 ounces. Time of was 1657. The placenta was complete spontaneous grossly normal. Tubes, uterus and ovaries appeared grossly normal. She had a thick lower uterine segment and very little scar tissue present in the patient's abdomen. Complications: none Surgical staff Temitope Lopez CRNA Operation Date: 08/22/25 16:15 <No data on this case meets the specified criteria> Diagnosis Discharge Diagnosis (1) Previous delivery affecting : Status: Acute (2) Chronic hypertension affecting : Status: Acute Problem details: On labetalol 200 twice daily. Monitor blood pressures . Push labetalol as needed. (3) Supervision of high risk , unspecified, third trimester: Status: Acute (4) Type 2 diabetes mellitus affecting in third trimester, antepartum: Status: Acute Problem List Completed Was Problem List Reviewed/Reconciled?: Yes
[2025-08-22] MEDS: hydrALAZINE INJ 20 MG/ML VIAL 5 MG IVP ×2 (19:11→20:33)
[2025-08-22] MEDS: NIFEdipine XL 30 MG TABCR 60 MG PO (19:35)
[2025-08-22] MEDS: ONDANSETRON INJ 2 MG/ML INJ 2 ML 4 MG IV (19:36)
--- NOTE | 2025-08-22 21:09 | PC.NURSE ---
Patient out of recovery phase at 08/22/20281954, RN remains at bedside to monitor patient BP. Dr. Augustin at bedside at 2039 to asses patient, states to go ahead and continue with scheduled medications and plan of care.
[2025-08-22] MEDS: OXYTOCIN in NS 20 units 20 UNIT/1,000 ML BAG 125 UNIT IV (22:15)
[2025-08-22] MEDS: LABETALOL 100 MG TABLET 200 MG PO (22:24)
[2025-08-23] VITALS (8 sets, daily range): BP systolic 127–149; BP diastolic 80–88; PULSE 80–93; RESP 15–19; TEMP 36.7–37; O2SAT 98–99
[2025-08-23] MEDS: KETOROLAC INJ 30 MG/ML VIAL IVP ×4 (04:28→23:49)
[2025-08-23 05:50] LABS: Basophils # (Auto) 0.0 Thou/mm3 (0.0-0.2); Basophils % (Auto) 0 % (0-2.5); Eosinophils # (Auto) 0.0 Thou/mm3 (0.0-0.5); Eosinophils % (Auto) 0 % (0-10); Hematocrit 32.5 % (36.0-46.0); Hemoglobin 10.8 g/dL (12.0-16.0); Immature Granulocytes Auto 0.05 Thou/mm3 (0.00-0.00); Lymphocytes # (Auto) 1.3 Thou/mm3 (1.0-4.8); Lymphocytes % (Auto) 9 % (10-50); Mean Corpuscular HGB Conc 33.2 g/dl (31.0-37.0); Mean Corpuscular Hemoglobin 26.9 pg (25.0-35.0); Mean Corpuscular Volume 81 fL (80-100); Monocytes # (Auto) 0.6 Thou/mm3 (0.0-0.8); Monocytes % (Auto) 4 % (0-12); Neutrophils # (Auto) 13.0 Thou/mm3 (1.8-7.7); Neutrophils % (Auto) 87 % (37-80); Nucleated Red Blood Cell # 0.00 Thou/mm3 (0.00-0.00); Nucleated Red Blood Cell % 0 /100 WBC (0); Platelet Count 243 Thou/mm3 (140-440); RDW Standard Deviation 41.5 fL (36.4-46.3); Red Blood Count 4.02 Miln/mm3 (4.00-5.20); White Blood Count 14.9 Thou/mm3 (3.6-11.0)
[2025-08-23 06:25] LABS: Alanine Aminotransferase 14 U/L (10-49); Albumin, Serum 3.4 gm/dL (3.5-5.0); Albumin/Globulin Ratio 1.4 (1.2-2.2); Alkaline Phosphatase 77 U/L (46-116); Anion Gap 11 (7-16); Aspartate Amino Transferase 22 U/L (0-34); BUN/Creatinine Ratio 16 Ratio (12-20); Bilirubin,Total 0.4 mg/dL (0.3-1.2); Blood Urea Nitrogen 11 mg/dL (9-23); Calcium 8.9 mg/dL (8.3-10.6); Calcium (Corrected) 9.4 mg/dL (8.5-10.1); Carbon Dioxide 16.4 mMol/L (20.0-31.0); Chloride 108 mMol/L (98-107); Creatinine (Component) 0.7 mg/dL (0.6-1.3); Estimated Creatinine Clearance 175.1 mL/min (>60); Globulin 2.5 gm/dL (2.3-3.5); Glucose 116 mg/dL (74-106); Osmolality,Calculated 270 (275-295); Potassium 4.2 mMol/L (3.4-5.1); Sodium 135 mMol/L (136-145); Total Protein 5.9 gm/dL (5.7-8.2); eGFR > 60 See Note
[2025-08-23] MEDS: Milk Of Magnesia Susp 30 ML UDC PO (08:09)
[2025-08-23] MEDS: DOCUSATE SOD 100 MG CAPSULE PO (08:10)
[2025-08-23] MEDS: LABETALOL 100 MG TABLET 200 MG PO ×2 (08:10→20:51)
[2025-08-23] MEDS: SIMETHICONE 80 MG CHEW PO ×2 (08:10→18:37)
[2025-08-23] MEDS: ENOXAPARIN SOD INJ 40 MG/0.4 ML SYRINGE SC (08:11)
[2025-08-23] MEDS: SODIUM CHLORIDE 0.9% IV (13:54)
[2025-08-23] MEDS: CEFAZOLIN IV (13:54)
[2025-08-23] MEDS: HYDROcodone/APAP 5/325 TABLET 1 TAB PO (16:14)
[2025-08-24 03:39] VITALS: BP 135/79; PULSE 75; RESP 16; TEMP 36.7; O2SAT 98
[2025-08-24] MEDS: KETOROLAC INJ 30 MG/ML VIAL IVP ×3 (05:54→17:58)
[2025-08-24 09:11] VITALS: BP 138/81; PULSE 83; RESP 16; TEMP 36.6; O2SAT 98
[2025-08-24 09:29] VITALS: BP 138/81; PULSE 83
[2025-08-24] MEDS: ENOXAPARIN SOD INJ 40 MG/0.4 ML SYRINGE SC (09:29)
[2025-08-24] MEDS: DOCUSATE SOD 100 MG CAPSULE PO (09:29)
[2025-08-24] MEDS: LABETALOL 100 MG TABLET 200 MG PO (09:29)
[2025-08-24 10:03] LABS: Basophils # (Auto) 0.0 Thou/mm3 (0.0-0.2); Basophils % (Auto) 1 % (0-2.5); Eosinophils # (Auto) 0.1 Thou/mm3 (0.0-0.5); Eosinophils % (Auto) 1 % (0-10); Hematocrit 27.9 % (36.0-46.0); Hemoglobin 9.1 g/dL (12.0-16.0); Immature Granulocytes Auto 0.02 Thou/mm3 (0.00-0.00); Lymphocytes # (Auto) 1.3 Thou/mm3 (1.0-4.8); Lymphocytes % (Auto) 16 % (10-50); Mean Corpuscular HGB Conc 32.6 g/dl (31.0-37.0); Mean Corpuscular Hemoglobin 26.5 pg (25.0-35.0); Mean Corpuscular Volume 81 fL (80-100); Monocytes # (Auto) 0.3 Thou/mm3 (0.0-0.8); Monocytes % (Auto) 4 % (0-12); Neutrophils # (Auto) 6.6 Thou/mm3 (1.8-7.7); Neutrophils % (Auto) 79 % (37-80); Nucleated Red Blood Cell # 0.00 Thou/mm3 (0.00-0.00); Nucleated Red Blood Cell % 0 /100 WBC (0); Platelet Count 217 Thou/mm3 (140-440); RDW Standard Deviation 42.4 fL (36.4-46.3); Red Blood Count 3.43 Miln/mm3 (4.00-5.20); White Blood Count 8.3 Thou/mm3 (3.6-11.0)
[2025-08-24 12:00] VITALS: BP 131/81; PULSE 92; RESP 18; TEMP 36.8; O2SAT 98
[2025-08-24 16:28] VITALS: BP 149/91; PULSE 87; RESP 18; TEMP 36.8; O2SAT 98
--- NOTE | 2025-08-24 17:42 | ESPR_ITS ---
Subjective Subjective Interval history: Patient is a 24-year-old -0-0-3 postop day #2 status post repeat low- transverse section. She is doing quite well. She is on labetalol 200 twice a day. Patient is voiding ambulating tolerating a general diet passing flatus. She would like to go home. She is breast and bottlefeeding. Exam Vital Signs Temp Pulse Resp BP Pulse Ox O2 Del Method 98.2 F 87 18 149/91 H 98 Room Air 08/24/25 16:28 08/24/25 16:28 08/24/25 16:28 08/24/25 16:28 08/24/25 16:28 08/24/25 16:28 Narrative Exam Patient is alert and orient x 3 in no apparent distress resting comfortably in bed. Fundus is firm. Abdomen is obese. Incisions clean dry and intact with Dermabond dressing in place. Extremities show 1+ edema of ankles. Objective Labs 08/24/25 09:40 08/23/25 05:23 Labs: Laboratory Results - last 24 hr 08/24/25 09:40 WBC 8.3 D RBC 3.43 L Hgb 9.1 L Hct 27.9 L MCV 81 MCH 26.5 MCHC 32.6 RDW Std Deviation 42.4 Plt Count 217 Neut % (Auto) 79 Lymph % (Auto) 16 [place] % (Auto) 4 Eos % (Auto) 1 Baso % (Auto) 1 Neut # (Auto) 6.6 Lymph # (Auto) 1.3 [place] # (Auto) 0.3 Eos # (Auto) 0.1 Baso # (Auto) 0.0 Immature Gran # (Auto) 0.02 H Absolute Nucleated RBC 0.00 Immature Gran % 0 Nucleated RBC % 0 Assessment & Plan Problem List (1) Previous delivery affecting : Problem details: Patient is postop day #2 in stable condition. Discharge instructions given. Follow-up in clinic in 1 week for a wound and blood pressure check. Status: Acute (2) Chronic hypertension affecting : Problem details: On labetalol 200 twice daily. Monitor blood pressures . Increase to 300 mg p.o. twice daily follow-up in clinic in 1 week. Signs of severe preeclampsia given. Status: Acute (3) Type 2 diabetes mellitus affecting in third trimester, antepartum: Status: Acute (4) care following delivery: Problem details: No heavy lifting intercourse tampons douching or strenuous exercise x 6 weeks follow-up 08/29/2025 for return OB visit Status: Acute Time Spent With Patient Time: Total time spent is greater than 50% in coordination of care (as documented) at patient's floor/unit and/or counseling patient: Time with patient: less than 15 minutes
--- NOTE | 2025-08-24 17:56 | ESDS_ITS ---
DS: Providers Provider Date of admission: 08/22/25 17:17 Primary care physician: Physician No Primary/Family Admitting Provider: Sud[facility] ([facility]) Attending Provider on Admission: Sudha Augustin MD ([facility]) Consults: 08/22/25 18:12 Referral Routine Comment: Attending Provider on DC: Sudha Augustin MD ([facility]) Discharging Provider: Sudha Augustin MD ([facility]) Anticipated date of discharge: 08/24/25 DS: Diagnosis Discharge Diagnosis (1) care following delivery: Status: Acute Assessment & Plan: Discharge instructions given. No heavy lifting, intercourse, tampons, douching, strenuous exercise x 6 weeks (2) Previous delivery affecting : Status: Acute Assessment & Plan: Follow-up in 1 week for blood pressure and wound check (3) Chronic hypertension affecting : Status: Acute Assessment & Plan: Home on labetalol 300 twice daily. Follow-up in 1 week. Check blood pressures at home. Signs of severe preeclampsia reviewed. (4) Type 2 diabetes mellitus affecting in third trimester, antepartum: Status: Acute Assessment & Plan: Check blood sugars at home. Continue metformin twice daily. Problem List Completed Was Problem List Reviewed/Reconciled?: Yes Summary/Hosp Course Brief History: Patient is a 24-year-old -0-1-2 history of x 2 in the past who was scheduled for repeat 08/23/[address] Landon. The patient presented today for a scheduled nonstress test for obesity with a BMI of 45, non-insulin requiring gestational diabetes on metformin, and chronic hypertension on labetalol. The patient's blood pressures in triage were at first normal but began to climb as the day went on consistently in the 150s to 160s over 90s. As patient was over 38 weeks with prior x 2 and elevated BPs, she was consented for a repeat low-transverse section. On presentation, the patient denied contractions, loss of fluid, or vaginal bleeding. She denied headaches,right upper quadrant pain, or changes in vision. See history and physical for further details Hospital course: Patient underwent an uncomplicated repeat low-transverse section in the evening of 08/22/2025. See op report for further details. Immediately post op, patient's blood pressures were extremely high. Requiring multiple IV doses of medications to control. Her blood pressure stabilized post operative day #1. By postoperative day #2, the patient was ambulating, voiding, passing flatus, tolerating a general diet. Her lochia was minimal. No fevers or chills. Her blood pressure was controlled with labetalol 200 p.o. twice daily. Patient was discharged home postoperative day #2 in stable condition. Discharge instructio ns included no heavy lifting, intercourse, douching, or strenuous exercise x 6 weeks. She was to follow-up in our clinic 08/29/2025 for a blood pressure check and wound check. Peripartum Data Delivery Method: Low Transverse Episiotomy Description: None Procedures: Procedures Operation Date: 08/22/25 16:15 Actual Procedure Side Surgeon p in OB Sudha Augustin ([facility]), complications: none Status at Discharge Cognitive/behavioral status at discharge: Patient is alert and oriented x 3 in no apparent distress Functional status at discharge: independent ambulation Overall status at discharge: patient is progressing back to baseline Time Spent with Patient Time attestation: Total time spent providing and/or coordinating discharge services: Time spent: Less than 30 minutes Specific discharge activities: No heavy lifting, intercourse, douching, strenuous exercise x 6 weeks. Call with fevers heavy vaginal bleeding or severe depression. Call if blood pressures are elevated. Go to the ER if blood pressures are 160s to 170s over 100s or with severe headache or shortness of breath or visual changes Exam Vital Signs Temp Pulse Resp BP Pulse Ox O2 Del Method 98.2 F 87 18 149/91 H 98 Room Air 08/24/25 16:28 08/24/25 16:28 08/24/25 16:28 08/24/25 16:28 08/24/25 16:28 08/24/25 16:28 Narrative Exam Fundus firm nontender incision clean dry and intact extremities showed no significant edema or erythema Discharge Plan Plan Patient Disposition: HOME (Self Care) Disposition Comment: Stable Prescriptions/Referrals Prescriptions/Med Rec: New acetaminophen 325 mg Tablet 650 mg PO Q6HR PRN (Reason: Patient rated pain of 3) Qty: 60 0RF hydrocodone-acetaminophen 5-325 mg Tablet 2 tab PO Q6HR MDD 4 PRN (Reason: Patient rated pain 9 to 10) Qty: 20 0RF ibuprofen 400 mg Tablet 800 mg PO Q8HR PRN (Reason: Pain Scale 4-6 (Moderate) Qty: 60 0RF docusate sodium 100 mg Capsule 100 mg PO QDAY Qty: 60 0RF labetalol 100 mg Tablet 300 mg PO BID Qty: 60 0RF enoxaparin 40 mg/0.4 mL Syringe 40 mg SCi QDAY Qty: 30 0RF Continued (DME) Blood Glucose Test Strip See Rx Instructions .ROUTE .MEDSUPPLY Qty: 100 0RF Rx Instructions: As directed, 4 times a day (DME) lancets 21 gauge misc See Rx Instructions .ROUTE .MEDSUPPLY Qty: 100 0RF Rx Instructions: As directed, 4 times a day (DME) pen needle, diabetic 29 gauge x 1/2 needle See Rx Instructions .ROUTE .MEDSUPPLY Qty: 100 2RF Rx Instructions: As directed, four times a day (DME) blood-glucose meter [Blood Glucose Monitoring] Kit See Rx Instructions .Route Qty: 1 0RF Rx Instructions: As directed, four times a day metformin 1,000 mg tablet 1,000 mg PO BID 30 Days Qty: 60 3RF Discontinued labetalol 200 mg tablet 200 mg PO BID 30 Days Qty: 60 2RF Referrals: No Primary/Family,Physician [Primary Care Provider] Patient/Caregiver Discharge Instructions Discharge Activity: activity as tolerated Other Discharge Activity Instructions:: Pelvic rest x 6 weeks no intercourse douching heavy lifting or strenuous exercise x 6 weeks Other Discharge Diet Instructions: Diabetic diet Education Materials: Managing Type 2 Diabetes, Diabetes: Caring for Your Body, After a , Diabetes: Activity Tips, : Caring for Yourself, C Section Dc, Diabetes and High Blood Pressure Print Language: [place] Activity Restrictions/Additional Instructions: Pelvic rest x 6 weeks. No heavy exercise x 6 weeks. No heavy lifting x 6 weeks. Call for fevers heavy vaginal bleeding or severe depression Stand Alone Forms: Priyanka Award Info., Patient Portal Info Letter Discharge Order Discharge Orders: Discharge (Routine); Ordered 08/24/25 Ordered By: Sudha Augustin ([facility]) Planned Discharge Date 08/24/25
[2025-08-24 19:43] VITALS: BP 148/86; PULSE 85; RESP 18; TEMP 36.9
== END 2025-08-24 19:47 | disposition home or self-care (01) | DRG 788 ==
LOC: S4S1 17:18 → S4NX 17:18
PROVIDERS: Admitting Provider Obstetrics & Gynecology; Visit Provider Obstetrics & Gynecology
PROC: 10D00Z1 Extraction of Products of Conception, Low, Open Approach (ICD-10-PCS; CPT 59514; principal; 2025-08-22 16:00)
DX: O34.211 Maternal care for low transverse scar from previous cesarean delivery (principal); Z3A.38 38 weeks gestation of pregnancy; Z37.0 Single live birth; O11.4 Pre-existing hypertension with pre-eclampsia, complicating childbirth; O24.415 Gestational diabetes mellitus in pregnancy, controlled by oral hypoglycemic drugs; O99.214 Obesity complicating childbirth
CPT/HCPCS: 36415; 59025; 80053; 81001; 82570; 83615; 84156; 84550; 85025; 85384; 85610; 85730; 86780; 86850; 86900; 86901; A4217; A4314; A4649; J0360; J0689; J0690; J1100; J1650; J1885; J2274; J2405; J2590; J3010; J3490; J7050; J7120; A9270; J1805; J1920; J2270

== ENCOUNTER 2025-08-25 21:35 | Emergency (ER) | payer BC, MEDICAID, SELFPAY ==
[2025-08-25 21:36] VITALS: BMI 42.3
[2025-08-25 22:41] VITALS: BP 178/99; BP 183/102; PULSE 84; RESP 20; TEMP 37.1; O2SAT 98
--- NOTE | 2025-08-25 22:49 | EDRME_ITS ---
Rapid Medical Screening Exam [facility] Arrival date/time: 08/25/25 21:35 24F with history of HTN and DM Presents to ED with elevated BP 3 days after having . Chief Complaint: General Adult/Misc Complain Vital signs: Vital Signs Temperature 98.8 F 08/25/25 22:41 Pulse Rate 84 08/25/25 22:41 Respiratory Rate 20 08/25/25 22:41 Blood Pressure 183/102 H 08/25/25 22:41 Pulse Oximetry (%) 98 08/25/25 22:41 Oxygen Delivery Method Room Air 08/25/25 22:41
[2025-08-25 23:10] LABS: Basophils # (Auto) 0.1 Thou/mm3 (0.0-0.2); Basophils % (Auto) 1 % (0-2.5); Eosinophils # (Auto) 0.2 Thou/mm3 (0.0-0.5); Eosinophils % (Auto) 2 % (0-10); Hematocrit 31.2 % (36.0-46.0); Hemoglobin 10.5 g/dL (12.0-16.0); Immature Granulocytes Auto 0.03 Thou/mm3 (0.00-0.00); Lymphocytes # (Auto) 2.1 Thou/mm3 (1.0-4.8); Lymphocytes % (Auto) 23 % (10-50); Mean Corpuscular HGB Conc 33.7 g/dl (31.0-37.0); Mean Corpuscular Hemoglobin 27.2 pg (25.0-35.0); Mean Corpuscular Volume 81 fL (80-100); Monocytes # (Auto) 0.5 Thou/mm3 (0.0-0.8); Monocytes % (Auto) 5 % (0-12); Neutrophils # (Auto) 6.2 Thou/mm3 (1.8-7.7); Neutrophils % (Auto) 68 % (37-80); Nucleated Red Blood Cell # 0.00 Thou/mm3 (0.00-0.00); Nucleated Red Blood Cell % 0 /100 WBC (0); Platelet Count 266 Thou/mm3 (140-440); RDW Standard Deviation 42.0 fL (36.4-46.3); Red Blood Count 3.86 Miln/mm3 (4.00-5.20); White Blood Count 9.0 Thou/mm3 (3.6-11.0)
[2025-08-25 23:20] LABS: Collection Type, Urine Clean Catch
[2025-08-25 23:29] LABS: Bilirubin,Urine Negative (Negative); Blood,Urine 3+ (Negative); Clarity,Urine Turbid (Clear/Hazy); Color,Urine Lt-Brown (Lt Yel-Yel); Culture Indicated,Urine Contaminated; Glucose, Urine Negative (Negative); Ketones,Urine Negative (Negative); Leukocyte Esterase,Urine Positive (Negative); Nitrite,Urine Negative (Negative); PH,Urine 6.5 (5.0-7.0); Protein,Urine 1+ (Neg - Trace); RBC,Urine 2740 /hpf (0-3); Specific Gravity,Urine 1.012 (1.001-1.035); Squamous Epithelial Cell,Urine 13 /hpf (0-5); Urobilinogen,Urine Negative mg/dL (0.0-1.0); WBC,Urine 61 /hpf (0-5)
[2025-08-25 23:34] LABS: Alanine Aminotransferase 59 U/L (10-49); Albumin, Serum 3.9 gm/dL (3.5-5.0); Albumin/Globulin Ratio 1.6 (1.2-2.2); Alkaline Phosphatase 80 U/L (46-116); Anion Gap 15 (7-16); Aspartate Amino Transferase 80 U/L (0-34); BUN/Creatinine Ratio 16 Ratio (12-20); Bilirubin,Total 0.3 mg/dL (0.3-1.2); Blood Urea Nitrogen 13 mg/dL (9-23); Calcium 9.6 mg/dL (8.3-10.6); Calcium (Corrected) 9.7 mg/dL (8.5-10.1); Carbon Dioxide 21.5 mMol/L (20.0-31.0); Chloride 106 mMol/L (98-107); Creatinine (Component) 0.8 mg/dL (0.6-1.3); Estimated Creatinine Clearance 148.4 mL/min (>60); Globulin 2.4 gm/dL (2.3-3.5); Glucose 109 mg/dL (74-106); Osmolality,Calculated 284 (275-295); Potassium 3.8 mMol/L (3.4-5.1); Sodium 142 mMol/L (136-145); Total Protein 6.3 gm/dL (5.7-8.2); eGFR > 60 See Note
[2025-08-25 23:37] LABS: Amphetamine/Methamp Scrn,U Negative (Negative); Barbiturate Screen,Urine Negative (Negative); Benzodiazepines Screen,Urine Negative (Negative); Benzoylecgonine Screen, Ur Negative (Negative); Fentanyl Screen,Urine Negative (Negative); Opiate Screen,Urine Positive (Negative); THC Screen,Urine Negative (Negative)
[2025-08-26] VITALS (11 sets, daily range): BP systolic 138–189; BP diastolic 86–108; PULSE 77–90; RESP 10–25; TEMP 36.9; O2SAT 94–99
--- NOTE | 2025-08-26 01:55 | EDNOTE_ITS ---
ED Recheck Abnl Lab Rx-RME/HPI General Chief Complaint: General Adult/Misc Complain Stated Complaint: HIGH BP, PP X3 DAYS Time Seen by Provider: 08/25/25 23:15 Arrival date/time: 08/25/25 21:35 RME / HPI RME / HPI narrative: 08/25/25 21:35 24F with history of HTN and DM Presents to ED with elevated BP 3 days after having . ------ Dr. Thompson?s Main ED Evaluation: 24yo female who is 3 days presenting with elevated blood pressure at home at 180 systolic. Patient complains of mild headache and shortness of breath despite taking labetalol 200mg BID. No nausea, vomiting, visual disturbance, or excessive swelling. PMH unremarkable. PSH includes recent . Nondrinker, nonsmoker, no illicit drug use. Related Data Previous Rx's ?Medication ?Instructions ?Recorded blood sugar diagnostic (Blood #100 ea 07/14/25 Glucose Test strips) blood-glucose meter (Blood Glucose #1 ea 07/14/25 Monitoring kit) lancets 21 gauge #100 ea 07/14/25 pen needle, diabetic 29 gauge x #100 ea 07/14/25 1/2 acetaminophen 325 mg tablet 650 mg (2 x 325 mg) PO Q6H R PRN 08/24/25 Patient rated pain of 3 #60 tabs docusate sodium 100 mg capsule 100 mg PO QDAY #60 caps 08/24/25 enoxaparin 40 mg/0.4 mL 40 mg (0.4 mL) SCi QDAY #30 mL 08/24/25 subcutaneous syringe hydrocodone 5 mg-acetaminophen 325 2 tab PO Q6HR PRN P atient rated 08/24/25 mg tablet pain 9 to 10 #20 tabs ibuprofen 400 mg tablet 800 mg (2 x 400 mg) PO Q8HR PRN 08/24/25 Pain Scale 4-6 (Moderate #60 tabs labetalol 100 mg tablet 300 mg (3 x 100 mg) PO BID # 60 tabs 08/24/25 metformin 1,000 mg tablet 1,000 mg PO BID 30 days #60 tabs 08/25/25 labetalol 100 mg tablet 100 mg PO BID #60 tabs 08/26 Allergies Allergy/AdvReac Type Severity Reaction Status Date / Time No Known Allergies Allergy Verified 08/22/25 10:16 Review of Systems Review of Systems Systems Reviewed: All systems reviewed, normal except as documented Past Medical History Past Medical History NEUROLOGIC: Negative Neurological Disorders, Seizures, Guillain-[place] Syndrome, Migraine or Head Trauma CARDIAC: Positive Cardiac Disorders and Hypertension (CHTN); Negative Congestive Heart Failure or Edema RESPIRATORY: Negative Chronic Obstructive Pulmonary Disease (COPD), Asthma, Pneumonia, Tuberculosis or Sleep Apnea GASTROINTESTINAL: Positive Gastrointestinal Disorders and Obesity; Negative Hepatitis or Gall Bladder Disease GENITOURINARY: Negative Genitourinary Disorders or Renal Disease REPRODUCTIVE: Negative Endometriosis, Genital Herpes, Gonorrhea, Pelvic Inflammatory Disease, Previous Pregnancies (X4), Syphilis or Uterine Prolapse MUSCULOSKELETAL: Negative Musculoskeletal Disorders, Arthritis, Gout, Scoliosis or Fractures ENT: Negative Head Trauma ENDOCRINE: Positive Endocrine Disorders and Diabetes Mellitus Type 2 (16years old); Negative Diabetes Mellitus Type 1 HEMATOLOGIC: Negative Blood Disorders, Anemia or Clotting Problems PSYCHO/SOCIAL: Negative Psychiatric Problems, Schizophrenia, Recreational Drug Use, Bipolar Disorder, Depression or Post Traumatic Stress Disorder OTHER HISTORY: Positive Hospitalization (pancreatitis at 16 years of life); Negative Autoimmune Disease, Down Syndrome, Autism, Developmental Delay, Shingles, Falls, Blood Transfusions, Blood Transfusion Reaction, Anesthesia Reactions, Organ Transplant, MRSA, VRSA, Vancomycin-Resistant Enterococci, Human Immunodeficiency Virus (HIV), Chicken Pox, Measles, Mumps, Rubella ([place] Measles), Pertussis, Clostridium Difficile or Cancer Family History FAMILY HISTORY: Positive Family Respiratory Disorders (Maternal grandmother- COPD), Family Cardiac Disorders (Mother/maternal grandmother CHF) and Family Cancer (Maternal grandmother-cancer); Negative Family Psychiatric Problems, Family Gastrointestinal Problems, Family Surgery or Family Anesthesia Reaction Surgical History SURGICAL: Positive Tonsillectomy ([age] years of life) and Section (X2); Negative Organ Transplant Social History SMOKING STATUS: Never smoker SECOND HAND EXPOSURE: No ED Exam Narrative Physical exam: GENERAL APPEARANCE: alert and oriented x 4, well-developed, well-nourished, no acute distress VITALS: All vitals were reviewed and the pulse ox is 98% on room air, which is normal according to my interpretation. Notably hypertensive. HEENT: Normocephalic, atraumatic; pupils equal, round, reactive to light; EOMI; mucous membranes pink, moist; oropharynx clear NECK: Supple LUNGS: CTABL; no wheezes, no rales, no rhonchi HEART: Regular rate, regular rhythm; normal S1, S2; no murmurs ABDOMEN: non distended; normal BS; soft, no tenderness, no guarding, no rebound; no masses, no organomegaly, no hernia BACK: no CVA tenderness EXTREMITIES: atraumatic; no edema NEUROLOGIC: awake; alert and oriented x4; cranial nerves II-XII grossly intact; no focal sensory or motor deficits PSYCHIATRIC: appropriate mood and affect SKIN: warm, dry, normal color; no rashes Course Quality Measures none Orders Category Date Time Status CBC Stat Lab 08/25/25 23:02 Completed CBC [CBC] Stat Lab 08/26/25 02:19 Completed CMP [Comprehensive Metabolic Panel] Stat Lab 08/25/25 23:02 Completed Drug Screen,Urine Stat Lab 08/25/25 23:13 Completed Urinalysis, C/S if Indicated Stat Lab 08/25/25 23:13 Completed Urinalysis, C/S if Indicated Stat Lab 08/26/25 02:06 Ordered Labetalol IV [Trandate IV] Med 08/26/25 02:06 Discontinued 10 mg IVP X1 ONE Labetalol IV [Trandate IV] Med 08/26/25 05:33 Discontinued 5 mg IVP X1 ONE Magnesium Sulfate 4 GM Ivpb [Magnesium Sulfate Ivpb] Med 08/26/25 02:07 Active 4 gm in 50 ml IV X1 Vital Signs Vital signs: Vital Signs Temperature 98.8 F 08/25/25 22:41 Pulse Rate 84 08/25/25 22:41 Respiratory Rate 20 08/25/25 22:41 Blood Pressure 183/102 H 08/25/25 22:41 Pulse Oximetry (%) 98 08/25/25 22:41 Oxygen Delivery Method Room Air 08/25/25 22:41 Recheck / Abnormal Lab / Rx MDM Narrative MDM Narrative:: Scribe Attestation: 08/26/25 Desi Gallegos am scribing for and in the presence of Dr. Thompson. 24yo female who is 3 days presenting with elevated blood pressure at home at 180 systolic. Patient complains of mild headache and shortness of breath despite taking labetalol 200mg BID. Please see PE findings. Lab markers demonstrated normal WBC count, mildly anemia with Hgb 10.5 (stable), normal Plt count. Chemistries unremarkable. UA showed 1+ proteins, 2740 RBCs, 61 WBCs, but no bacteria. Considered a contaminated specimen. Patient placed on ekg monitor tech and received incremental doses of labetalol and IV magnesium sulfate with gradual reduction in blood pressure and heart rate. Patient will likely be discharged to home with increase from 200mg BID to 300mg BID. Close [facility]ATOR follow-up anticipated. Patient data External records reviewed:: [facility] previous records (Per chart review, patient has no previous ED visits.) Clinical information provided by:: patient Social determinants that could affect healthcare access:: none Patient has the following chronic illnesses:: HTN, DM How is presenting disease/condition affected by chronic disease/condition?: caused by Evaluation data The following diagnostics were reviewed and interpreted by me:: lab results Lab and/or radiology exams considered but not ordered:: none Interpretation Summary: See MDM Medications / Prescriptions Medications or Prescriptions considered but not ordered:: none Medication administrations:: Medication Administration History Magnesium Sulfate (Magnesium Sulfate Ivpb) 4 gm in 50 mls @ 12.5 mls/hr IV X1 ONE Stop: 08/26/25 06:06 Last Admin: 08/26/25 03:45 Dose: 12.5 mls/hr Documented By: JANELLE Discontinued Medications Labetalol HCl (Labetalol Inj 5 Mg/Ml Vial 20 Ml) 10 mg IVP X1 ONE Stop: 08/26/25 02:07 Last Admin: 08/26/25 03:11 Dose: 10 mg Documented By: JANELLE Labetalol HCl (Labetalol Inj 5 Mg/Ml Vial 20 Ml) 5 mg IVP X1 ONE Stop: 08/26/25 05:34 see above Consultations Consultation(s) initiated? (list below): No Diagnosis Recheck Differential Diagnosis: other (preeclampsia, hypertensive urgency, hypertension) Most likely diagnosis given after review of the tests above:: see clinical impression below Admission Indicated Admission indicated?: not indicated Admission Request Was there a request for admission?: No Disposition Plan Disposition Plan: Discharge Discharge Attestation Discharge Attestation: The patient and all family members were given an opportunity to ask questions and understood the discharge instructions. Discharge instructions specifically effects, indications for sooner follow up or return to the emergency department, and the expected course of current diagnosis. Patient condition: Stable Discharge Plan Plan Patient Disposition: HOME (Self Care) Discharge Disposition comment: sTABLE Prescriptions/Referrals Prescriptions/Med Rec: New labetalol 100 mg tablet 100 mg PO BID Qty: 60 0RF Rx Instructions: Patient to take one 200 mg tablet and one 100 mg tablet twice daily. No Action (DME) Blood Glucose Test Strip See Rx Instructions .ROUTE .MEDSUPPLY Qty: 100 0RF Rx Instructions: As directed, 4 times a day (DME) lancets 21 gauge misc See Rx Instructions .ROUTE .MEDSUPPLY Qty: 100 0RF Rx Instructions: As directed, 4 times a day (DME) pen needle, diabetic 29 gauge x 1/2 needle See Rx Instructions .ROUTE .MEDSUPPLY Qty: 100 2RF Rx Instructions: As directed, four times a day (DME) blood-glucose meter [Blood Glucose Monitoring] Kit See Rx Instructions .Route Qty: 1 0RF Rx Instructions: As directed, four times a day metformin 1,000 mg tablet 1,000 mg PO BID 30 Days Qty: 60 3RF acetaminophen 325 mg Tablet 650 mg PO Q6HR PRN (Reason: Patient rated pain of 3) Qty: 60 0RF hydrocodone-acetaminophen 5-325 mg Tablet 2 tab PO Q6HR MDD 4 PRN (Reason: Patient rated pain 9 to 10) Qty: 20 0RF ibuprofen 400 mg Tablet 800 mg PO Q8HR PRN (Reason: Pain Scale 4-6 (Moderate) Qty: 60 0RF docusate sodium 100 mg Capsule 100 mg PO QDAY Qty: 60 0RF labetalol 100 mg Tablet 300 mg PO BID Qty: 60 0RF enoxaparin 40 mg/0.4 mL Syringe 40 mg SCi QDAY Qty: 30 0RF Referrals: No Primary/Family,Physician [Primary Care Provider] - In 1 week Problem List Clinical Impression: Pre-eclampsia added to pre-existing hypertension Impression comment: Preeclampsia/existing hypertension Patient/Caregiver Discharge Instructions Discharge Activity: activity as tolerated Diet Instructions: Low-salt intake. Education Materials: Understanding Preeclampsia Additional Instructions: Monitor blood pressure twice daily. Follow-up with [facility]ALL COVERING INSTALLER physician on Friday as scheduled. Increase labetalol to a total of 300 mg in the a.m. and p.m.) Print Language: Bengali Stand Alone Forms: Priyanka Award Info., Patient Portal Info Letter
[2025-08-26 02:25] LABS: Basophils # (Auto) 0.0 Thou/mm3 (0.0-0.2); Basophils % (Auto) 1 % (0-2.5); Eosinophils # (Auto) 0.2 Thou/mm3 (0.0-0.5); Eosinophils % (Auto) 2 % (0-10); Hematocrit 31.7 % (36.0-46.0); Hemoglobin 10.5 g/dL (12.0-16.0); Immature Granulocytes Auto 0.02 Thou/mm3 (0.00-0.00); Lymphocytes # (Auto) 1.9 Thou/mm3 (1.0-4.8); Lymphocytes % (Auto) 21 % (10-50); Mean Corpuscular HGB Conc 33.1 g/dl (31.0-37.0); Mean Corpuscular Hemoglobin 27.2 pg (25.0-35.0); Mean Corpuscular Volume 82 fL (80-100); Monocytes # (Auto) 0.4 Thou/mm3 (0.0-0.8); Monocytes % (Auto) 5 % (0-12); Neutrophils # (Auto) 6.3 Thou/mm3 (1.8-7.7); Neutrophils % (Auto) 71 % (37-80); Nucleated Red Blood Cell # 0.00 Thou/mm3 (0.00-0.00); Nucleated Red Blood Cell % 0 /100 WBC (0); Platelet Count 250 Thou/mm3 (140-440); RDW Standard Deviation 43.0 fL (36.4-46.3); Red Blood Count 3.86 Miln/mm3 (4.00-5.20); White Blood Count 8.9 Thou/mm3 (3.6-11.0)
[2025-08-26] MEDS: LABETALOL INJ 5 MG/ML VIAL 20 ML 10 MG IVP (03:11)
[2025-08-26] MEDS: Magnesium Sulfate 4 GM Ivpb 4 GM/50 ML BAG IV (03:45)
[2025-08-26] MEDS: LABETALOL INJ 5 MG/ML VIAL 20 ML IVP (05:58)
== END 2025-08-26 06:34 | disposition home or self-care (01) ==
PROVIDERS: Physician Assistant; Emergency Provider Emergency Medicine
DX: O11.5 Pre-existing hypertension with pre-eclampsia, complicating the puerperium (principal); O10.93 Unspecified pre-existing hypertension complicating the puerperium
CPT/HCPCS: 36415; 80053; 80307; 81001; 85025; 96374; 96376; 99284; J3475; J3490; J1920

== ENCOUNTER 2025-08-29 10:23 | Outpatient (AMB) | payer BC, MEDICAID, SELFPAY ==
--- NOTE | 2025-08-29 10:29 | AMB.OBPP ---
Vital Signs 08/29/25 10:30 Height 1.7 m Height Method Stated Weight 119.918 kg Weight Measurement Method Standing Scale BMI 41.5 BP 159/106 H Blood Pressure Source Automatic Cuff Blood Pressure Location Left Upper Arm Position Sitting Respiration 16 Pulse 102 H Pulse Source Monitor Temp 97.2 F Temp Source Oral Pulse Oximetry (%) 98 Oxygen Delivery Method Room Air Allergies/Home Meds Allergies & Medications Allergies No Known Allergies Allergy (Verified 09/06/25 08:45) Intake Visit Data Collection New Patient or Established: Established Patient (seen at [facility] within 3 years) Reason for Visit:: Seen by Clinical Staff ONLY (RN/MA): No Fiscal Technician Required: No Do You Feel Safe at Home: Yes Authorities Contacted: N/A PCP or OBGYN visit in last 3 months: Yes Date of Last PCP or OBGYN visit: 08/26/25 Hx Now: Yes Are you currently on any form of Control: No Pain Present Currently: No Pain Scale Used: [place]-Linder/Numerical Pain scale:: 0 Smoking Status 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 Past Medical History: No Hx Neurological Disorders, Yes Hx Cardiac Disorders, Yes Hx Hypertension (CHTN), No Hx Cancer, No Hx Blood Disorders, No Hx Anemia, Yes Hx Gastrointestinal Disorders, No Hx Renal Disease, No Hx Diabetes Mellitus Type 1, Yes Hx Diabetes Mellitus Type 2 (16years old) and No Psychiatric Problems Questionnaires Covid-19 Vaccine Questionnaire Has patient been vacinated for Covid-19 Have you been vacinated for Covid-19: Yes Social History Living Situation History Lives With: Family Housing: House Tobacco History Smoking Status: Never smoker Second Hand Smoke Exposure: No Alcohol History Alcohol Intake: Never Domestic Abuse History Do You Feel Safe at Home: Yes EPDS - PP Depression Screening [place] Pospartum Depression Screen I have been able to laugh and see the funny side of things: (0) As much as I always could I have looked forward with enjoyment to things: (0) As much as I ever did I have blamed myself unnecessarily when things went wrong: (0) No, never I have been anxious or worried for no good reason: (0) No, not at all I have felt scared or panicky for no very good reason: (0) No, not at all Things have been getting on top of me: (0) No, I have been coping as well as ever I have been so unhappy that I have had difficulty sleeping: (0) No, not at all I have felt sad or miserable: (0) No, not at all I have been so unhappy that I have been crying: (0) No, never The thought of harming myself has occurred to me: (0) Never Total Score: EPDS Score: Referral is indicated for score of 9 or more, suicidal, or if provider believes patient is depressed regardless of score.: 0 EPDS completed yes HPI Interval History: Luiza Castro is a patient with a history of high-risk type 2 diabetes mellitus and chronic hypertension presenting for a postoperative visit following section on August 22, 2025. She had presented to the emergency room on August 26, 2025 with elevated blood pressure reaching up to 180 systolic at home. The patient reports persistent hypertension despite current treatment with labetalol 300 mg twice daily. Her blood pressure readings remain elevated in the high 150s to 160s range. She has a history of suboptimal glucose control and was previously on labetalol when last seen. She is currently . Regarding her postoperative recovery, she was discharged home with Lovenox injections and antifungal powder from Dr. Fields/Talha. She experiences occasional low sharp pain in her right upper quadrant area but describes it as infrequent and attributes it to back pain rather than severe gallbladder-type pain. She notes that her abdominal area retains moisture due to how her stomach hangs. The patient is adherent to her current labetalol regimen but requires additional antihypertensive management given persistently elevated readings. She is seeking clarification about the necessity of continuing the Lovenox injections and antifungal powder that were prescribed at discharge. She has a history of section on August 22, 2025. The patient has been taking labetalol 300 mg twice daily. She discontinued Lovenox and antifungal powder. The patient mentions having to go to school tomorrow. She has an obstetric history of G1 T1 L1. She delivered via section on August 22, 2025. ROS: Gastrointestinal: Positive for right upper quadrant pain, described as low and sharp, not frequent, possibly related to back pain. 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 Exam Narrative Physical exam: Abdominal: incision site examined with tape removed. Skin has joined up and appears healed without complication General General Appearance: alert, in no apparent distress and healthy appearing Head Head exam: atraumatic Neck Neck exam: Present normal inspection and trachea midline Chest Chest inspection: Present normal inspection and symmetric chest wall rise External exam: Present normal external exam; Absent tenderness Neuro Neurological exam: Present oriented X3 Psych Psychiatric exam: Present normal affect and normal mood Office Procedures OBC Clinic LOC & Office Proc's Nursing/Assessment Patient Status: Established Patient OB Clinic Nursing Assessment: Medication Reconciliation, Update PMH in EMR and Vital Signs OB Clinic Coordination of Care: Consent,records obtained, informed consent, Education Simp Pt/Fam, Lab and Imaging orders, Results/Orders obtained and Staff clarify orders Special Needs: Heart tones Established Patient Charge Established Patient Point Assignment: 110 Established Patient Point Charge: EP Level 3 (80-115) Assessment & Plan Diagnosis / Problem List (1) care following delivery: Status: Acute (2) Chronic hypertension affecting : Status: Acute Plan Hypertension: - Elevated blood pressure in the high 150s to 160s range despite current labetalol 300 mg twice daily. - Current antihypertensive regimen is insufficient for adequate blood pressure control. - Patient is , which limits medication options. Plan: - Add nifedipine once daily in the afternoon. - Continue labetalol 300 mg twice daily (morning and evening). - Follow-up in one week for blood pressure recheck. - Monitor for right upper quadrant pain which could indicate severe preeclampsia complications. Status Post Section: - Patient is postoperative day 7 from . - Incision site appears well-healed with skin edges approximated. - No signs of infection or dehiscence noted on examination. Plan: - Discontinue Lovenox (inappropriate for outpatient use post-). - Return Lovenox to pharmacy if possible. - Discontinue antifungal powder application to incision. - Remove tape and padding from incision site. - Incision care: wash with soap during shower, dry thoroughly with clean towel, no dressings or powders needed.
[2025-08-29 10:30] VITALS: BP 159/106; PULSE 102; RESP 16; TEMP 36.2; O2SAT 98; BMI 41.5
== END 2025-08-29 10:38 | disposition home or self-care (01) ==
LOC: HODSOBC 10:23
PROVIDERS: Supervising Provider Obstetrics & Gynecology; Visit Provider Obstetrics & Gynecology
DX: Z39.2 Encounter for routine postpartum follow-up (principal); Z39.1 Encounter for care and examination of lactating mother; O10.93 Unspecified pre-existing hypertension complicating the puerperium; Z79.899 Other long term (current) drug therapy
CPT/HCPCS: 99213; G0463

== ENCOUNTER 2025-09-06 08:31 | Outpatient (AMB) | payer BC, MEDICAID, SELFPAY ==
[2025-09-06 08:44] VITALS: BP 133/88; PULSE 98; RESP 18; TEMP 36.2; O2SAT 98; BMI 41.1
--- NOTE | 2025-09-06 08:44 | AMBOBPPN_ITS ---
Vital Signs 09/06/25 08:44 Height 1.7 m Height Method Stated Weight 118.841 kg Weight Measurement Method Standing Scale BMI 41.1 BP 133/88 H Blood Pressure Source Automatic Cuff Blood Pressure Location Left Upper Arm Position Sitting Respiration 18 Pulse 98 Pulse Source Monitor Temp 97.2 F Temp Source Oral Pulse Oximetry (%) 98 Oxygen Delivery Method Room Air Allergies/Home Meds Allergies & Medications Allergies No Known Allergies Allergy (Verified 10/04/25 10:02) Medication Reconciliation lancets 21 gauge #100 ea 07/14/25 [Rx Confirmed 10/04/25] pen needle, diabetic 29 gauge x 1/2 #100 ea 07/14/25 [Rx Confirmed 10/04/25] labetalol 100 mg tablet 300 mg (3 x 100 mg) PO BID #60 tabs 08/24/25 [Rx Confirmed 10/04/25] metformin 1,000 mg tablet 1,000 mg PO BID 30 days #60 tabs 08/25/25 [Rx Confirmed 10/04/25] nifedipine 30 mg tablet,extended release 30 mg PO QDAY 30 days #30 tabs 08/29/25 [Rx Confirmed 10/04/25] Intake Visit Data Collection New Patient or Established: Established Patient (seen at [facility] within 3 years) Reason for Visit:: [facility] Seen by Clinical Staff ONLY (RN/MA): No 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 Do You Feel Safe at Home: Yes Authorities Contacted: N/A PCP or OBGYN visit in last 3 months: Yes Date of Last PCP or OBGYN visit: 08/29/25 Hx Now: No Are you currently on any form of Control: No Pain Present Currently: No Pain Scale Used: Saldana-Linder/Numerical Pain scale:: 0 Smoking Status 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 Medical History Past Medical History: No Hx Neurological Disorders, Yes Hx Cardiac Disorders, Yes Hx Hypertension (CHTN), No Hx Cancer, No Hx Blood Disorders, No Hx Anemia, Yes Hx Gastrointestinal Disorders, No Hx Renal Disease, No Hx Diabetes Mellitus Type 1, Yes Hx Diabetes Mellitus Type 2 (16years old) and No Psychiatric Problems Questionnaires Covid-19 Vaccine Questionnaire Has patient been vacinated for Covid-19 Have you been vacinated for Covid-19: Yes Social History Living Situation History Marital Status: Single Lives With: Family Housing: House Tobacco History Smoking Status: Never smoker Second Hand Smoke Exposure: No Alcohol History Alcohol Intake: Never Domestic Abuse History Do You Feel Safe at Home: Yes EPDS - PP Depression Screening [place] Pospartum Depression Screen I have been able to laugh and see the funny side of things: (0) As much as I always could I have looked forward with enjoyment to things: (0) As much as I ever did I have blamed myself unnecessarily when things went wrong: (0) No, never I have been anxious or worried for no good reason: (0) No, not at all I have felt scared or panicky for no very good reason: (0) No, not at all Things have been getting on top of me: (0) No, I have been coping as well as ever I have been so unhappy that I have had difficulty sleeping: (0) No, not at all I have felt sad or miserable: (0) No, not at all I have been so unhappy that I have been crying: (0) No, never The thought of harming myself has occurred to me: (0) Never Total Score: EPDS Score: Referral is indicated for score of 9 or more, suicidal, or if provider believes patient is depressed regardless of score.: 0 EPDS completed yes HPI Interval History: Luiza Castro presents for routine follow-up approximately one month after delivery. She is currently taking antihypertensive medications as prescribed and reports good adherence to her treatment regimen. Her blood pressure is being monitored following delivery, with plans to continue medications for six weeks before gradual weaning. She denies experiencing headaches, visual symptoms, or right-sided abdominal pain, which are concerning warning signs for severe preeclampsia development in the period. She has a history of recently delivering at term, approximately one month ago. She developed preeclampsia during or period and is currently in follow-up care. The patient reports that her baby is doing well. The patient is currently taking blood pressure medications and confirms taking the medications as prescribed. She has an obstetric history of G1 T1 L1. 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 Exam General General Appearance: alert, in no apparent distress and healthy appearing Head Head exam: atraumatic Neck Neck exam: Present normal inspection and trachea midline Chest Chest inspection: Present normal inspection and symmetric chest wall rise External exam: Present normal external exam; Absent tenderness Neuro Neurological exam: Present oriented X3 Psych Psychiatric exam: Present normal affect and normal mood Office Procedures OBC Clinic LOC & Office Proc's Nursing/Assessment Patient Status: Established Patient OB Clinic Nursing Assessment: Medication Reconciliation, Update PMH in EMR and Vital Signs OB Clinic Coordination of Care: Consent,records obtained, informed consent, Education Simp Pt/Fam, Results/Orders obtained and Staff clarify orders Special Needs: Heart tones Established Patient Charge Established Patient Point Assignment: 95 Established Patient Point Charge: EP Level 3 (80-115) Assessment & Plan Diagnosis / Problem List (1) care following delivery: Status: Acute Plan Hypertension: - Patient approximately one month with hypertension managed on antihypertensive medications. - Current blood pressure 130/80s, acceptable on current treatment regimen. - At continued risk for severe preeclampsia development in period. Plan: - Continue current antihypertensive medications for 6 weeks total from delivery date. - Follow-up appointment in approximately one month to recheck blood pressure. - Plan to slowly wean off antihypertensive medications at follow-up visit if blood pressure remains controlled. - Patient educated on warning signs of severe preeclampsia: ? Headache ? Visual symptoms ? Right-sided stomach pain - Instructed to return immediately if warning symptoms develop.
== END 2025-09-06 09:03 | disposition home or self-care (01) ==
LOC: HODSOBC 08:31
PROVIDERS: Supervising Provider Obstetrics & Gynecology; Visit Provider Obstetrics & Gynecology
DX: Z39.2 Encounter for routine postpartum follow-up (principal); O10.93 Unspecified pre-existing hypertension complicating the puerperium; Z79.899 Other long term (current) drug therapy
CPT/HCPCS: 99213; G0463

== ENCOUNTER 2025-10-04 09:50 | Outpatient (AMB) | payer BC, MEDICAID, SELFPAY ==
[2025-10-04 10:01] VITALS: BP 144/93; PULSE 85; RESP 18; TEMP 36.4; O2SAT 98; BMI 41.1
--- NOTE | 2025-10-04 10:01 | AMBOBPPN_ITS ---
Vital Signs 10/04/25 10:01 Height 1.7 m Height Method Stated Weight 118.955 kg Weight Measurement Method Standing Scale BMI 41.1 BP 144/93 H Blood Pressure Source Automatic Cuff Blood Pressure Location Left Upper Arm Position Sitting Respiration 18 Pulse 85 Pulse Source Monitor Temp 97.6 F Temp Source Temporal Artery Scan Pulse Oximetry (%) 98 Oxygen Delivery Method Room Air Allergies/Home Meds Allergies & Medications Allergies No Known Allergies Allergy (Verified 10/04/25 10:02) Medication Reconciliation lancets 21 gauge #100 ea 07/14/25 [Rx Confirmed 10/04/25] pen needle, diabetic 29 gauge x 1/2 #100 ea 07/14/25 [Rx Confirmed 10/04/25] labetalol 100 mg tablet 300 mg (3 x 100 mg) PO BID #60 tabs 08/24/25 [Rx Confirmed 10/04/25] metformin 1,000 mg tablet 1,000 mg PO BID 30 days #60 tabs 08/25/25 [Rx Confirmed 10/04/25] nifedipine 30 mg tablet,extended release 30 mg PO QDAY 30 days #30 tabs 08/29/25 [Rx Confirmed 10/04/25] Intake Visit Data Collection New Patient or Established: Established Patient (seen at [facility] within 3 years) Reason for Visit:: PP Seen by Clinical Staff ONLY (RN/MA): No 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 Do You Feel Safe at Home: Yes Authorities Contacted: N/A PCP or OBGYN visit in last 3 months: Yes Date of Last PCP or OBGYN visit: 09/06/25 Hx Now: No Are you currently on any form of Control: No Pain Present Currently: No Pain Scale Used: [place]-Linder/Numerical Pain scale:: 0 Smoking Status Smoking Status: Never smoker Immunizations Flu Vaccine in the Last 12 Months: No Flu Vaccine Exclusion Criteria: No 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 Past Medical History: No Hx Neurological Disorders, Yes Hx Cardiac Disorders, Yes Hx Hypertension (CHTN), No Hx Cancer, No Hx Blood Disorders, No Hx Anemia, Yes Hx Gastrointestinal Disorders, No Hx Renal Disease, No Hx Diabetes Mellitus Type 1, Yes Hx Diabetes Mellitus Type 2 (16years old) and No Psychiatric Problems Questionnaires Covid-19 Vaccine Questionnaire Has patient been vacinated for Covid-19 Have you been vacinated for Covid-19: No Social History Living Situation History Marital Status: Life Partner Lives With: Family Housing: House Tobacco History Smoking Status: Never smoker Second Hand Smoke Exposure: No Alcohol History Alcohol Intake: Never Domestic Abuse History Do You Feel Safe at Home: Yes EPDS - PP Depression Screening [place] Pospartum Depression Screen I have been able to laugh and see the funny side of things: (0) As much as I always could I have looked forward with enjoyment to things: (0) As much as I ever did I have blamed myself unnecessarily when things went wrong: (0) No, never I have been anxious or worried for no good reason: (0) No, not at all I have felt scared or panicky for no very good reason: (0) No, not at all Things have been getting on top of me: (0) No, I have been coping as well as ever I have been so unhappy that I have had difficulty sleeping: (0) No, not at all I have felt sad or miserable: (0) No, not at all I have been so unhappy that I have been crying: (0) No, never The thought of harming myself has occurred to me: (0) Never EPDS completed yes HPI Interval History: Luiza Castro presents for routine follow-up approximately six weeks post-delivery following section on August 22. The patient reports that everything is going well overall. Both she and her baby are doing good, with feeding established through a combination of and bottle feeding as needed. She has no current plans for control at this time. The patient mentions she previously saw Dr. Acevedo for obstetric care and plans to r eturn to his practice for ongoing care as he prefers to follow his own patients. She has a history of section on August 22, 2025. The patient is currently and/or bottle feeding. She has a 16-year-old sister currently hospitalized and recovering from surgery. She is currently approximately 6 weeks following delivery. ROS: Not documented. Exam General General Appearance: alert, in no apparent distress and healthy appearing Head Head exam: atraumatic Neck Neck exam: Present normal inspection and trachea midline Chest Chest inspection: Present normal inspection and symmetric chest wall rise External exam: Present normal external exam; Absent tenderness Neuro Neurological exam: Present oriented X3 Psych Psychiatric exam: Present normal affect and normal mood Office Procedures OBC Clinic LOC & Office Proc's Nursing/Assessment Patient Status: Established Patient OB Clinic Nursing Assessment: Medication Reconciliation, Update PMH in EMR and Vital Signs OB Clinic Coordination of Care: Complex Care and Chronic Disease 1-5, Education Complex Pt/Fam, Consent,records obtained, informed consent and Staff clarify orders Established Patient Charge Established Patient Point Assignment: 90 Established Patient Point Charge: EP Level 3 (80-115) Antepartum Initial or Follow-up Antepartum Follow up Visit: Yes Assessment & Plan Diagnosis / Problem List (1) care following delivery: Status: Acute (2) Previous delivery affecting : Status: Acute Plan Status Post Section: - Patient is approximately 6 weeks following section performed on August 22. - Reports doing well overall with good baby care including feeding management. - No specific complications or concerns identified during this visit. Plan: - Patient cleared to return to previous electrical technician Dr. Acevedo for ongoing care as requested by that provider.
== END 2025-10-04 10:23 | disposition home or self-care (01) ==
LOC: HODSOBC 09:50
PROVIDERS: Supervising Provider Obstetrics & Gynecology; Visit Provider Obstetrics & Gynecology
DX: Z39.2 Encounter for routine postpartum follow-up (principal); Z39.1 Encounter for care and examination of lactating mother
CPT/HCPCS: 59425; 99213; Z1034; G0463